=== PATIENT | male | born 1945 ===

== ENCOUNTER 2016-05-14 07:54 | Day surgery (SDC) | payer MEDICARE ==
[2014-12-14 07:34] VITALS: BMI 24.1
[2016-05-14] MEDS ORDERED: Lactated Ringer's 500 ML IV ONE ×2 (12:20)
[2016-05-14] MEDS ORDERED: Propofol 10 mg/ml Inj (20 ML) ONE (12:20)
[2016-05-14] MEDS ORDERED: Lidocaine Hydrochloride 5 ML INJ ONE (12:29)
[2016-05-14] MEDS ORDERED: Lactated Ringer's 1,000 ML IV SCH (12:30)
[2016-05-14 12:57] VITALS: O2SAT 100
[2016-05-14 13:49] VITALS: BP 101/69; PULSE 65; RESP 22; TEMP 97.1
== END 2016-05-14 13:45 | disposition home or self-care (01) ==
LOC: C.ENDO 07:54
PROVIDERS: ATTEND Internal Medicine Gastroenterology
DX: Z12.11 Encounter for screening for malignant neoplasm of colon (principal); Z86.010 Personal history of colon polyps; K64.8 Other hemorrhoids; Z85.46 Personal history of malignant neoplasm of prostate
CPT/HCPCS: 45378; J2704; J7120

== ENCOUNTER 2017-04-14 03:59 | Inpatient (IN) | payer MEDICAID, MEDICARE ==
[2017-04-14 03:59] VITALS: BMI 24.1
[2017-04-14] MEDS ORDERED: Sodium Chloride 0.9% 500 ML IV ONE ×2 (04:23→04:32)
[2017-04-14] MEDS ORDERED: Aluminum Hydroxide/Magnesium Hydroxide Susp (30 mL) PO STA (04:25)
--- NOTE | 2017-04-14 04:25 | C.PDOC ---
Time Seen by Provider: 04/14/17 04:23 Chief Complaint (Nursing): Chest Pain Past Medical History Vital Signs: Last Vital Signs Temp 97.7 F 04/14/17 04:06 Pulse 70 04/14/17 04:06 Resp 20 04/14/17 04:06 BP 90/48 L 04/14/17 04:06 Pulse Ox 100 04/14/17 04:06 - Medical History PMH: Arthritis, Back Problems (), HTN, Hypercholesterolemia, Kidney Stones, Pneumonia (2004), Chronic Kidney Disease Denies: HIV Surgical History: Endoscopy - [facility] Procedures DRAINAGE OF BACK SUBCU/FASCIA WITH DRAIN DEV, OPEN APPROACH (02/01/17) EXCISION OF BACK SUBCU/FASCIA, OPEN APPROACH (02/01/17) FLUOROSCOPY OF SUPERIOR VENA CAVA, GUIDANCE (02/01/17) INSERTION OF INFUSION DEV INTO SUP VENA CAVA, PERC APPROACH (02/01/17) INTRODUCE OTH ANTI-INFECT IN CENTRAL VEIN, PERC (02/01/17) ULTRASONOGRAPHY OF SUPERIOR VENA CAVA, GUIDANCE (02/01/17) Family History: States: Unknown Family Hx - Social History Hx Tobacco Use: No Hx Alcohol Use: No Hx Substance Use: No - Immunization History Hx Tetanus Toxoid Vaccination: No Hx Influenza Vaccination: Yes Hx Pneumococcal Vaccination: Yes ED Course And Treatment O2 Sat by Pulse Oximetry: 100 Disposition - Disposition
--- NOTE | 2017-04-14 04:27 | C.PDOC ---
History Of Present Illness <Cheryl Ngo - Last Filed: 04/14/17 07:02> <Oracio Amin M - Last Filed: 04/14/17 12:41> 72 year old male presents to the ED via EMS for evaluation of burning chest pain which began at approx. 20:00 after eating fried chickpea dish. Patient reports that pain is exacerbated by laying supine. He has been diaphoretic and unable to sleep. He denies vomiting or belching. Pt was given nitro and aspirin en route. (Cheryl Ngo) History Per: Patient History/Exam Limitations: no limitations Onset/Duration Of Symptoms: Hrs Current Symptoms Are (Timing): Still Present Context: Food Quality: Burning Associated Symptoms: Diaphoresis Exacerbating Factors: Other (supine) <Cheryl Ngo - Last Filed: 04/14/17 07:02> <Oracio Amin M - Last Filed: 04/14/17 12:41> Time Seen by Provider: 04/14/17 04:23 Chief Complaint (Nursing): Chest Pain Past Medical History Reviewed: Historical Data, Nursing Documentation - Medical History PMH: Arthritis, Back Problems (), HTN, Hypercholesterolemia, Kidney Stones, Pneumonia (2004), Chronic Kidney Disease Denies: HIV Surgical History: Endoscopy Family History: States: Unknown Family Hx - Social History Hx Tobacco Use: No Hx Alcohol Use: No Hx Substance Use: No - Immunization History Hx Tetanus Toxoid Vaccination: No Hx Influenza Vaccination: Yes Hx Pneumococcal Vaccination: Yes <Cheryl Ngo - Last Filed: 04/14/17 07:02> Vital Signs: Last Vital Signs Temp 97.5 F L 04/14/17 08:53 Pulse 76 04/14/17 08:53 Resp 20 04/14/17 08:53 BP 120/68 04/14/17 08:53 Pulse Ox 100 04/14/17 08:53 - [facility] Procedures DRAINAGE OF BACK SUBCU/FASCIA WITH DRAIN DEV, OPEN APPROACH (02/01/17) EXCISION OF BACK SUBCU/FASCIA, OPEN APPROACH (02/01/17) FLUOROSCOPY OF SUPERIOR VENA CAVA, GUIDANCE (02/01/17) INSERTION OF INFUSION DEV INTO SUP VENA CAVA, PERC APPROACH (02/01/17) INTRODUCE OTH ANTI-INFECT IN CENTRAL VEIN, PERC (02/01/17) ULTRASONOGRAPHY OF SUPERIOR VENA CAVA, GUIDANCE (02/01/17) Review Of Systems Except As Marked, All Systems Reviewed And Found Negative. Constitutional: Negative for: Fever, Chills ENT: Negative for: Ear Pain, Throat Pain Cardiovascular: Positive for: Chest Pain, Other (diaphoresis) Respiratory: Negative for: Shortness of Breath Gastrointestinal: Negative for: Nausea, Vomiting, Abdominal Pain, Diarrhea Skin: Negative for: Rash Neurological: Negative for: Headache <Cheryl Ngo - Last Filed: 04/14/17 07:02> Physical Exam - Physical Exam Appears: Well, No Acute Distress Skin: Normal Color, Warm, Dry Head: Atraumatic, Normacephalic Eye(s): bilateral: Normal Inspection, PERRL, EOMI Oral Mucosa: Moist Tongue: Normal Appearing Lips: Normal Appearing Throat: Normal Neck: Normal, Normal ROM, Supple Cardiovascular: Rhythm Regular Respiratory: Normal Breath Sounds Gastrointestinal/Abdominal: Soft, No Tenderness Back: Normal Inspection Extremity: Normal ROM, No Deformity Neurological/Psych: Oriented x3, Normal Speech <Cheryl Ngo - Last Filed: 04/14/17 07:02> ED Course And Treatment - Laboratory Results Result Diagrams: 04/14/17 04:51 04/14/17 04:51 ECG: Interpreted By Me, Viewed By Me ECG Rhythm: Sinus Rhythm, 1st Degree HB ECG Interpretation: Normal Interpretation Of ECG: Field EKG shows sinus rhythm at 75 bpm, no acute ST-T wave changes, no ectopy. No change in EKG done upon arrival to ER. First degree AV block noted. O2 Sat by Pulse Oximetry: 100 (on RA) <Cheryl Ngo - Last Filed: 04/14/17 07:02> - Laboratory Results Result Diagrams: 04/14/17 04:51 04/14/17 04:51 <Oracio Amin - Last Filed: 04/14/17 12:41> Medical Decision Making <Cheryl Ngo - Last Filed: 04/14/17 07:02> <Oracio Amin Last Filed: 04/14/17 12:41> Medical Decision Making: Impression: indegestion Will order labs, CXR, and IV fluids and reevaluate. Patient reevaluated. Pain no better after GI cocktail. Will give narcotic analgesic and order CT scan. (Cheryl Ngo) Disposition <Cheryl Ngo - Last Filed: 04/14/17 07:02> Discussed With Dr.: Thomas Cervantes Doctor Will See Patient In The: Hospital Counseled Patient/Family Regarding: Studies Performed, Diagnosis - Disposition Disposition Time: 12:41 <Oracio Amin - Last Filed: 04/14/17 12:41> - Disposition Referrals: Olman Graham MD [Staff Provider] - Disposition: HOSPITALIZED Condition: FAIR Forms: [facility] ([place]) - Clinical Impression Clinical Impression: Chest pain, Biliary colic - Scribe Statement The provider has reviewed the documentation as recorded by the Scribe <Cheryl Ngo - Last Filed: 04/14/17 07:02> <Oracio mAin - Last Filed: 04/14/17 12:41> - Scribe Statement The provider has reviewed the documentation as recorded by the Scribe (Berto Escobar) (Cheryl Ngo) Provider Attestation: All medical record entries made by the Scribe were at my direction and personally dictated by me. I have reviewed the chart and agree that the record accurately reflects my personal performance of the history, physical exam, medical decision making, and the department course for this patient. I have also personally directed, reviewed, and agree with the discharge instructions and disposition. (Cheryl Ngo) Addendum <Cheryl Ngo - Last Filed: 04/14/17 07:02> <Oracio Amin - Last Filed: 04/14/17 12:41> Addendum: 04/14/17 12:39 Received patient in s/o pending ultrasound and ct scan which demonstrated biliary disease. Chest pain has improved. Case discussed with Dr. Gabe Cervantes and will admit to telemetry. Surgical consult for Dr. Graham, vice president of instruction notified. (Oracio Amin)
[2017-04-14] MEDS ORDERED: Aluminum Hydroxide/Magnesium Hydroxide Susp (30 mL) ONE (04:32)
[2017-04-14 05:08] LABS: BASO % 0.4 % (0.0-2.0); EOS # 0.1 K/uL (0.0-0.7); EOS % 0.8 % (0.0-4.0); HEMOGLOBIN 11.5 g/dL (12.0-18.0); LYMPH # 2.7 K/uL (1.0-4.3); LYMPH % 30.8 % (20.0-40.0); MEAN CELL VOLUME 86.5 fL (80.0-94.0); MEAN CORPUSCULAR HEMOGLOBIN 28.2 pg (27.0-31.0); MEAN CORPUSCULAR HGB CONC 32.6 g/dL (33.0-37.0); MEAN PLATELET VOLUME 7.9 fL (7.2-11.7); MONO # 0.6 K/uL (0.0-0.8); MONO % 7.1 % (0.0-10.0); NEUT # 5.4 K/uL (1.8-7.0); NEUT % 60.9 % (50.0-75.0); RBC 4.1 Mil/uL (4.40-5.90); RED CELL DISTRIBUTION WIDTH 14.9 % (11.5-14.5); WHITE BLOOD COUNT 8.9 K/uL (4.8-10.8)
[2017-04-14 05:15] LABS: ALBUMIN 3.8 g/dL (3.5-5.0); ALT/SGPT 48 U/L (21-72); AST/SGOT 23 U/L (17-59); BLOOD UREA NITROGEN 17 mg/dL (9-20); CALCIUM 9.2 mg/dl (8.6-10.4); GFR AFRICAN-AMERICAN > 60; GFR NON-AFRICAN AMERICAN > 60
[2017-04-14] MEDS ORDERED: Morphine 4 MG/ML VIAL IV ONE ×2 (06:30→08:49)
[2017-04-14] MEDS ORDERED: Morphine 4 MG/ML VIAL ONE ×3 (06:52→14:08)
[2017-04-14] MEDS ORDERED: Iodixanol 320 MG/ML 100 ML BOTTLE IV ONE (07:44)
--- NOTE | 2017-04-14 08:02 | RAD ---
PROCEDURE: CHEST RADIOGRAPH, 1 VIEW HISTORY: chest pain COMPARISON: 09/25/2015 FINDINGS: LUNGS: No consolidation PLEURA: No pneumothorax. Interval vague opacity over the left costophrenic angle noted. Complete obliteration of the ankle. Nevertheless an interval change in appearance is noted oval left pleural parenchymal thickening and/or trace effusion here possible. CARDIOVASCULAR: Top-normal heart size. No dwight pulmonary venous congestion OSSEOUS STRUCTURES: Thoraco lumbar spondylosis the bilateral shoulder arthrosis VISUALIZED UPPER ABDOMEN: Normal. OTHER FINDINGS: None. IMPRESSION: No consolidation. Interval left inferolateral pleural parenchymal opacity/ reaction -costophrenic angle. Trace interval fluid possible
--- NOTE | 2017-04-14 09:55 | CT ---
PROCEDURE: CT Abdomen and Pelvis with contrast HISTORY: Abdominal pain COMPARISON: None. TECHNIQUE: CT scan of the abdomen and pelvis was performed after intravenous administration of contrast. Oral contrast was not administered. Coronal and sagittal reformatted images were obtained. Contrast dose: 100 mL Visipaque Radiation dose: Total exam DLP = 316.79 mGy-cm. This CT exam was performed using one or more of the following dose reduction techniques: Automated exposure control, adjustment of the mA and/or kV according to patient size, and/or use of iterative reconstruction technique. FINDINGS: LOWER THORAX: There is dependent atelectasis in the lung bases. LIVER: The liver is normal in size and there is homogeneous enhancement. No gross lesion or ductal dilatation. GALLBLADDER AND BILE DUCTS: The gallbladder is distended and there are multiple gallstones. No wall thickening or pericholecystic fluid. PANCREAS: Normal in size with homogeneous enhancement. No gross lesion or ductal dilatation. SPLEEN: Normal in size and appearance. ADRENALS: No discrete nodule. KIDNEYS AND URETERS: Both kidneys are normal in size and there is homogeneous enhancement. There are simple cortical cysts in both kidneys, the largest left upper pole parapelvic cyst measures 2.6 cm. There is a 3 mm nonobstructing stone in the upper pole and 2 mm nonobstructing stone in the lower pole of the right kidney. VASCULATURE: No aortic aneurysm. BOWEL: The small bowel loops are normal in caliber. There is large amount of stool in the colon. No bowel dilatation or obstruction. APPENDIX: Normal appendix. PERITONEUM: No free fluid. No free air. LYMPH NODES: No enlarged lymph nodes. BLADDER: The urinary bladder is normal in appearance. . REPRODUCTIVE: The prostate gland is normal in size. BONES: No acute fracture. Interspinous fusion at L4 and L5. OTHER FINDINGS: None. IMPRESSION: 1. Constipation. No evidence of bowel obstruction. 2. 3 mm nonobstructing stone in the upper pole and 2 mm nonobstructing stone in the lower pole of the right kidney. 3. Cholelithiasis and distended gallbladder. If clinically indicated, correlation with right upper quadrant ultrasound may be performed to exclude acute cholecystitis.
[2017-04-14 10:35] LABS: LIPASE 141 U/L (23-300)
--- NOTE | 2017-04-14 12:12 | US ---
HISTORY: abd. pain COMPARISON: CT abdomen and pelvis with IV contrast performed 04/14/17 TECHNIQUE: Sonographic evaluation of the right upper quadrant of the abdomen. FINDINGS: LIVER: Measures 12.6 cm in length. Echogenic liver may be seen in setting of hepatic parenchymal disease or fatty infiltration. No focal hepatic mass identified. The main portal vein appears patent with normal directional flow. No intrahepatic bile duct dilatation. GALLBLADDER: Gallstones. Gallbladder wall appears top normal in thickness measuring approximately 3 mm. Mild pericholecystic edema. Negative sonographic Singleton's sign as assessed by the plastic surgery nurse. COMMON BILE DUCT: Measures 4 mm. PANCREAS: Not well-visualized. RIGHT KIDNEY: Measures 9.6 x 4.4 x 4.4 cm. No hydronephrosis. 4 mm upper pole renal calculus. 1.2 cm and 1.7 cm renal cysts. AORTA: Limited visualization appears grossly unremarkable. IVC: Limited visualization appears grossly unremarkable. OTHER FINDINGS: None . IMPRESSION: Immobile gallstones at the level the gallbladder neck. Gallbladder wall appears top normal in thickness. Minimal pericholecystic edema. Negative sonographic Singleton's sign as assessed by the plastic surgery nurse. Correlate clinically for possibility of cholecystitis. Echogenic liver may be seen in setting of hepatic parenchymal disease or fatty infiltration. Nonobstructing right renal calculus. Right renal cysts.
[2017-04-14] MEDS ORDERED: Piperacill/Tazo 3.375gm in Dex 3.375 GM/50 ML BAG IVPB STA (12:37)
--- NOTE | 2017-04-14 12:43 | CP.PCM.HP ---
History of Present Illness - History of Present Illness History of Present Illness: Medicine Note For Hospitalist Service- Dr. Gabe Cervantes CC: Chest pain and abdominal pain HPI: 72 Male with PMHx as listed below presents to the ED with chest pain and abdominal pain x 1 day. Patient reports last night he ate a greasy meal , deep fried dumplings around 8pm. Around 10pm he started to feel chest pressure localized to the epigastric area, did not radiate and lasted several hours. He admitted to abdominal pain and distention. He did not take anything for pain. He was transported to ED via ambulance. Patient reported the chest pressure resolved after receiving medications in the ED. He admits to feeling bloated and distended. He normally has a daily bowel movement, he did not have a bowel movement today. Currently patient reports he no longer has chest pain, admits to abdominal discomfort and distention. He does not have any appetite currently. Denied fever, chills, headache, chest pain, SOB, n/v/d/c, or urinary symptoms. PMHx: Diastolic CHF (LVEF 55%), Prostate Cancer s/p chemoradiation (diagnosed 2015, remission 01/2017), HTN, TB (2004), QTc Prolongation, Nephrolithiasis, 1st Degree AV Block, HLD, Chronic Anemia PSHx: Laminectomy with Fusion (01/21/17) - spinal abscess s/p I&D, Cataract Bilaterally (2015), Left inguinal and Umbilical Hernia, Colonoscopy 2016 Meds: Lisinopril 5mg PO daily, Lasix 20mg PO BID All: NKDA SHx: Denied any tobacco, alcohol, or illicit drug use FHx: Unremarkable Ophthalmology: Dr. Bhavik Wetzel No advance directive POA: Darlin Cervantes [phone] Present on Admission - Present on Admission Any Indicators Present on Admission: No Past Patient History - Infectious Disease Hx of Infectious Diseases: None - Past Medical History & Family History Past Medical History?: Yes - Past Social History Smoking Status: Never Smoked - CARDIAC Hx Hypercholesterolemia: Yes Hx Hypertension: Yes - PULMONARY Hx Pneumonia: Yes (2004) - NEUROLOGICAL Hx Neurological Disorder: No - HEENT Hx HEENT Problems: Yes Hx Cataracts: Yes (Extraction) Other/Comment: Eye glasses - RENAL Hx Chronic Kidney Disease: Yes Hx Kidney Stones: Yes - ENDOCRINE/METABOLIC Hx Endocrine Disorders: No - HEMATOLOGICAL/ONCOLOGICAL Hx Human Immunodeficiency Virus (HIV): No - INTEGUMENTARY Hx Dermatological Problems: No - MUSCULOSKELETAL/RHEUMATOLOGICAL Hx Arthritis: Yes - GASTROINTESTINAL Hx Gastrointestinal Disorders: Yes Hx Hemorrhoids: Yes - GENITOURINARY/GYNECOLOGICAL Hx Genitourinary Disorders: Yes Hx Prostate Cancer: Yes - PSYCHIATRIC Hx Substance Use: No - SURGICAL HISTORY Hx Surgeries: Yes Hx Cataract Extraction: Yes Hx Herniorrhaphy: Yes Other/Comment: 01/21/2017 - ANESTHESIA Hx Anesthesia: Yes Hx Anesthesia Reactions: No Hx Malignant Hyperthermia: No Meds Allergies/Adverse Reactions: Allergies Allergy/AdvReac Type Severity Reaction Status Date / Time No Known Allergies Allergy Verified 04/14/17 04:11 Physical Exam - Constitutional Appears: No Acute Distress - Head Exam Head Exam: NORMAL INSPECTION, NORMOCEPHALIC - Eye Exam Eye Exam: EOMI, Normal appearance, PERRL Pupil Exam: NORMAL ACCOMODATION - ENT Exam ENT Exam: Mucous Membranes Moist - Respiratory Exam Respiratory Exam: Clear to Auscultation Bilateral, NORMAL BREATHING PATTERN. absent: Decreased Breath Sounds, Wheezes - Cardiovascular Exam Cardiovascular Exam: REGULAR RHYTHM, RRR. absent: JVD - GI/Abdominal Exam GI & Abdominal Exam: Normal Bowel Sounds, Soft. absent: Distended, Guarding, Rigid, Tenderness (Patient received morphine in ED prior to exam. ) - Extremities Exam Extremities exam: Positive for: normal inspection, pedal pulses present. Negative for: pedal edema, tenderness - Neurological Exam Neurological exam: Alert, CN II-XII Intact, Oriented x3 - Psychiatric Exam Psychiatric exam: Normal Affect, Normal Mood - Skin Skin Exam: Dry, Intact, Normal Color, Warm Results - Vital Signs Recent Vital Signs: Last Vital Signs Temp 97.5 F L 04/14/17 08:53 Pulse 76 04/14/17 08:53 Resp 20 04/14/17 08:53 BP 120/68 04/14/17 08:53 Pulse Ox 100 04/14/17 08:53 - Labs Result Diagrams: 04/14/17 04:51 04/14/17 04:51 Labs: Laboratory Results - last 24 hr 04/14/17 04/14/17 04:51 04:51 WBC 8.9 RBC 4.10 L Hgb 11.5 L Hct 35.4 MCV 86.5 D MCH 28.2 MCHC 32.6 L RDW 14.9 H Plt Count 302 MPV 7.9 Neut % (Auto) 60.9 Lymph % (Auto) 30.8 [place] % (Auto) 7.1 Eos % (Auto) 0.8 Baso % (Auto) 0.4 Neut # (Auto) 5.4 Lymph # (Auto) 2.7 [place] # (Auto) 0.6 Eos # (Auto) 0.1 Baso # (Auto) 0.0 Sodium 139 Potassium 4.3 Chloride 101 Carbon Dioxide 26 Anion Gap 16 BUN 17 Creatinine 0.9 Est GFR ( Amer) > 60 Est GFR (Non-Af Amer) > 60 Random Glucose 147 H Calcium 9.2 Total Bilirubin 0.6 AST 23 ALT 48 Alkaline Phosphatase 70 Troponin I < 0.0120 Total Protein 7.5 Albumin 3.8 Globulin 3.7 Albumin/Globulin Ratio 1.0 Lipase 141 Assessment & Plan - Assessment and Plan (Free Text) Plan: Acute Cholecystitis General Surgery consulted- Dr. Graham- ave appreciated Afebrile, no leukocytosis Negative Singleton sign on exam - however patient received total 8mg IV of morphine prior to examination Blood Culture f/u Imaging: CT Ab&P with IV only: 1. Constipation. No evidence of bowel obstruction. 2. 3 mm nonobstructing stone in the upper pole and 2 mm nonobstructing stone in the lower pole of the right kidney. 3. Cholelithiasis and distended gallbladder. If clinically indicated, correlation with right upper quadrant ultrasound may be performed to exclude acute cholecystitis. Gallbladder US: Immobile gallstones at the level the gallbladder neck. Gallbladder wall appears top normal in thickness. Minimal pericholecystic edema. Negative sonographic Singleton's sign as assessed by the structural shop helper. Correlate clinically for possibility of cholecystitis. Echogenic liver may be seen in setting of hepatic parenchymal disease or fatty infiltration. Nonobstructing right renal calculus. Right renal cysts. Meds: Zosyn 3.375gm IVP Q6H Probiotic 1 tab PO BID - 2 hours prior to abx administration Zofran PRN Chest pain R/O ACS ANGELINA- negative, EKst degree AV Block F/U ANGELINA x 2, EKG x 2 Diastolic CHF Cardiology consulted - Dr. Barrientos - ave appreciated - for cardiac clearance ECHO 01/2017: LVEF 55% with diastolic dysfunction CXR: No consolidation. Interval left inferolateral pleural parenchymal opacity/ reaction -costophrenic angle. Trace interval fluid possible BNP: Resumed home medication: Lasix 20mg PO BID Patient is for nuclear stress test tomorrow morning 04/15/17 QTc Prolongation EKG: QTc 452 Continue to monitor 1st Degree AV Block EKG: ME interval 214 Continue to monitor Nephrolithiasis Asymptomatic CT Ab&Pwith IV only: 1. Constipation. No evidence of bowel obstruction. 2. 3 mm nonobstructing stone in the upper pole and 2 mm nonobstructing stone in the lower pole of the right kidney. 3. Cholelithiasis and distended gallbladder. If clinically indicated, correlation with right upper quadrant ultrasound may be performed to exclude acute cholecystitis. HTN Hx HLD Resumed home medication: Lisinopril 5mg PO daily A1C: 5.6 Prostate Cancer s/p chemoradiation Diagnosed 2015, remission 01/2017 Patient follows up with Dr. Bailon Hx TB (2004) Hx Cataract Surgery Patient to continue follow up with Opthamology Prophylactic Measures GI PPX: Protonix 40mg IVP daily DVT PPX: SCDs, Heparin [id number] will hold prior to surgery NPO DW Dr. Gabe Cervantes, Wanda Feldman DO, PGY-1
[2017-04-14] MEDS ORDERED: Morphine 4 MG/ML VIAL IVP PRN (12:57)
[2017-04-14] MEDS ORDERED: Morphine 4 MG/ML VIAL IV STA (12:59)
[2017-04-14] MEDS ORDERED: Sodium Chloride 0.9% 1,000 ML IV SCH (13:00)
[2017-04-14] MEDS ORDERED: Piperacillin/Tazobact 3.375 GM in Sodium Chloride 100 ML IVPB STA (13:00)
[2017-04-14] MEDS ORDERED: Sodium Chloride 0.9% 1,000 ML ONE (14:08)
[2017-04-14] MEDS ORDERED: Bisacodyl 5mg EC Tab PO ONE (14:19)
[2017-04-14 15:04] LABS: PROTHROMBIN TIME 10.8 SECONDS (9.7-12.2)
[2017-04-14 15:08] LABS: CK-MB 0.67 ng/mL (0.0-3.38)
--- NOTE | 2017-04-14 16:51 | CP.PCM.CON ---
History of Present Illness - History of Present Illness History of Present Illness: General Surgery Consult HPI: 72M presented to the ED complaining of chest discomfort and epigastric pain that started at 11 pm on 04/13. Pt had a large amount of fatty, fried food at dinner prior to the pain. He states that his pain migrated to his RUQ over few hours. Pain is 10/10 but has slowly been improving after pain meds. Denies fevers, chills, shortness of breath, diarrhea, constipation, nausea, or vomiting. PMH: diastolic CHF, nephrolithiasis, prostate cancer, TB (2005 treated), HTN, QTc prolongation, 1st degree AV block, HLD, chronic anemia PSH: laminectomy with fusion (L4-S1) 01/21/17, spinal abscess s/p I&D 02/08, left inguinal hernia repair x2, umbilical hernia repair SH: Denies tobacco, EtOH, drug use FH: non-contributory All: NKDA Meds: Lisinopril 5 mg po daily, Lasix 20 mg po bid Review of Systems - Review of Systems All systems: reviewed and no additional remarkable complaints except (as per HPI ) Past Patient History - Infectious Disease Hx of Infectious Diseases: None - Past Medical History & Family History Past Medical History?: Yes - Past Social History Smoking Status: Never Smoked - CARDIAC Hx Hypercholesterolemia: Yes Hx Hypertension: Yes - PULMONARY Hx Pneumonia: Yes (2004) - NEUROLOGICAL Hx Neurological Disorder: No - HEENT Hx HEENT Problems: Yes Hx Cataracts: Yes (Extraction) Other/Comment: Eye glasses - RENAL Hx Chronic Kidney Disease: Yes Hx Kidney Stones: Yes - ENDOCRINE/METABOLIC Hx Endocrine Disorders: No - HEMATOLOGICAL/ONCOLOGICAL Hx Human Immunodeficiency Virus (HIV): No - INTEGUMENTARY Hx Dermatological Problems: No - MUSCULOSKELETAL/RHEUMATOLOGICAL Hx Arthritis: Yes - GASTROINTESTINAL Hx Gastrointestinal Disorders: Yes Hx Hemorrhoids: Yes - GENITOURINARY/GYNECOLOGICAL Hx Genitourinary Disorders: Yes Hx Prostate Cancer: Yes - PSYCHIATRIC Hx Substance Use: No - SURGICAL HISTORY Hx Surgeries: Yes Hx Cataract Extraction: Yes Hx Herniorrhaphy: Yes Other/Comment: 01/21/2017 - ANESTHESIA Hx Anesthesia: Yes Hx Anesthesia Reactions: No Hx Malignant Hyperthermia: No Meds Allergies/Adverse Reactions: Allergies Allergy/AdvReac Type Severity Reaction Status Date / Time No Known Allergies Allergy Verified 04/14/17 04:11 - Medications Medications: Current Medications Furosemide (Lasix) 20 mg PO BID [facility] Heparin Sodium (Porcine) (Heparin) 5,000 units SC Q8 [facility] Piperacillin Sod/Tazobactam Sod (Zosyn 4.5 Gm Iv Premix) 4.5 gm in 100 mls @ 200 mls/hr IVPB Q8H [facility] Lactobacillus Acidophilus (Bacid Acidophilus) 1 cap PO BID [facility] Lisinopril (Zestril) 5 mg PO DAILY [facility] Ondansetron HCl (Zofran Inj) 4 mg IVP Q6 PRN PRN Reason: Nausea/Vomiting Pantoprazole Sodium (Protonix Inj) 40 mg IVP DAILY [facility] Physical Exam - Constitutional Appears: Non-toxic, No Acute Distress - Head Exam Head Exam: ATRAUMATIC, NORMOCEPHALIC - Eye Exam Eye Exam: EOMI. absent: Scleral icterus - ENT Exam ENT Exam: Mucous Membranes Moist Additional comments: trachea midline - Respiratory Exam Respiratory Exam: NORMAL BREATHING PATTERN. absent: Respiratory Distress - Cardiovascular Exam Cardiovascular Exam: +S1, +S2. absent: Bradycardia, Tachycardia - GI/Abdominal Exam GI & Abdominal Exam: Guarding (in RUQ), Soft, Tenderness (in RUQ, milder in epigastrum). absent: Distended, Firm, Hernia, Rigid Additional comments: + flaherty's - Rectal Exam Rectal Exam: Deferred - Extremities Exam Extremities exam: Positive for: normal capillary refill, pedal pulses present. Negative for: calf tenderness - Back Exam Back exam: absent: CVA tenderness (L), CVA tenderness (R) - Neurological Exam Neurological exam: Alert, Oriented x3 - Psychiatric Exam Psychiatric exam: Normal Affect, Normal Mood - Skin Skin Exam: Dry, Warm Results - Vital Signs Recent Vital Signs: Last Vital Signs Temp 97.7 F 04/14/17 14:43 Pulse 76 04/14/17 14:43 Resp 18 04/14/17 14:43 BP 124/77 04/14/17 14:43 Pulse Ox 98 04/14/17 14:43 - Labs Result Diagrams: 04/14/17 04:51 04/14/17 04:51 Labs: Laboratory Results - last 24 hr 04/14/17 04/14/17 04/14/17 04:51 04:51 14:15 WBC 8.9 RBC 4.10 L Hgb 11.5 L Hct 35.4 MCV 86.5 D MCH 28.2 MCHC 32.6 L RDW 14.9 H Plt Count 302 MPV 7.9 Neut % (Auto) 60.9 Lymph % (Auto) 30.8 [place] % (Auto) 7.1 Eos % (Auto) 0.8 Baso % (Auto) 0.4 Neut # (Auto) 5.4 Lymph # (Auto) 2.7 [place] # (Auto) 0.6 Eos # (Auto) 0.1 Baso # (Auto) 0.0 PT INR APTT Sodium 139 Potassium 4.3 Chloride 101 Carbon Dioxide 26 Anion Gap 16 BUN 17 Creatinine 0.9 Est GFR ( Amer) > 60 Est GFR (Non-Af Amer) > 60 Random Glucose 147 H Hemoglobin A1c 5.6 Calcium 9.2 Total Bilirubin 0.6 AST 23 ALT 48 Alkaline Phosphatase 70 Total Creatine Kinase CK-MB (Mass) Troponin I < 0.0120 Total Protein 7.5 Albumin 3.8 Globulin 3.7 Albumin/Globulin Ratio 1.0 Lipase 141 04/14/17 04/14/17 14:15 14:56 WBC RBC Hgb Hct MCV MCH MCHC RDW Plt Count MPV Neut % (Auto) Lymph % (Auto) [place] % (Auto) Eos % (Auto) Baso % (Auto) Neut # (Auto) Lymph # (Auto) [place] # (Auto) Eos # (Auto) Baso # (Auto) PT 10.8 INR 1.0 APTT 30 Sodium Potassium Chloride Carbon Dioxide Anion Gap BUN Creatinine Est GFR ( Amer) Est GFR (Non-Af Amer) Random Glucose Hemoglobin A1c Calcium Total Bilirubin AST ALT Alkaline Phosphatase Total Creatine Kinase 51 L CK-MB (Mass) 0.67 Troponin I < 0.0120 Total Protein Albumin Globulin Albumin/Globulin Ratio Lipase - Imaging and Cardiology CT scan - abdomen Status: Image reviewed by me, Report reviewed by me US - abdomen Status: Image reviewed by me, Report reviewed by me Assessment & Plan - Assessment and Plan (Free Text) Assessment: 72M with biliary colic vs early cholecystitis Plan: - Cont Abx per medicine - Zofran PRN - Laproscopic cholecystectomy planning for , awaiting cardiac clearance. - F/U stress test tomorrow - AM labs - Analgesia PRN D/W Dr. Gladys Judge PGY4
[2017-04-14] MEDS: Piperacill/Tazo 4.5gm in Dex 4.5 GM/100 ML BAG IVPB SCH (17:45)
[2017-04-14] MEDS ORDERED: Piperacillin/Tazobact 3.375 GM in Sodium Chloride 100 ML IVPB SCH (20:00)
[2017-04-14 22:18] LABS: CK-MB 0.64 ng/mL (0.0-3.38)
[2017-04-15] MEDS: Piperacill/Tazo 4.5gm in Dex 4.5 GM/100 ML BAG IVPB SCH ×3 (01:50→18:14)
[2017-04-15 06:38] LABS: BASO % 0.4 % (0.0-2.0); EOS # 0.1 K/uL (0.0-0.7); EOS % 1.7 % (0.0-4.0); HEMOGLOBIN 11.1 g/dL (12.0-18.0); LYMPH # 1.2 K/uL (1.0-4.3); LYMPH % 18.9 % (20.0-40.0); MEAN CELL VOLUME 85.5 fL (80.0-94.0); MEAN PLATELET VOLUME 7.9 fL (7.2-11.7); MONO # 0.7 K/uL (0.0-0.8); MONO % 10.3 % (0.0-10.0); NEUT # 4.3 K/uL (1.8-7.0); NEUT % 68.7 % (50.0-75.0); RBC 3.83 Mil/uL (4.40-5.90); RED CELL DISTRIBUTION WIDTH 14.7 % (11.5-14.5); WHITE BLOOD COUNT 6.3 K/uL (4.8-10.8)
[2017-04-15 06:54] LABS: ALBUMIN 3.1 g/dL (3.5-5.0); ALT/SGPT 39 U/L (21-72); AST/SGOT 19 U/L (17-59); BLOOD UREA NITROGEN 18 mg/dL (9-20); CALCIUM 8.3 mg/dl (8.6-10.4); GFR AFRICAN-AMERICAN > 60; GFR NON-AFRICAN AMERICAN 59; HDL CHOLESTEROL 47 mg/dL (30-70); MAGNESIUM 2.2 mg/dL (1.6-2.3)
[2017-04-15 07:02] LABS: LDL CHOLESTEROL 83 mg/dL (0-129)
--- NOTE | 2017-04-15 07:40 | CP.PCM.PN ---
<Wanda Feldman - Last Filed: 04/15/17 09:52> Subjective - Date & Time of Evaluation Date of Evaluation: 04/15/17 Time of Evaluation: 07:00 - Subjective Subjective: Medicine Note for Hospitalist Service- Dr. Gabe Cervantes Patient was seen and examined at bedside. Patient is NPO for Nuclear Stress test today. Denied fever, chills, headache, chest pain, abdominal pain, n/v/d/c , or urinary symptoms. Objective - Vital Signs/Intake and Output Vital Signs (last 24 hours): Temp Pulse Resp BP Pulse Ox 98.2 F 80 20 99/62 L 96 04/15/17 04:00 04/15/17 04:00 04/15/17 04:00 04/15/17 04:00 04/15/17 04:00 Intake and Output: 04/15/17 04/15/17 06:59 18:59 Intake Total 10 Balance 10 - Medications Medications: Current Medications Furosemide (Lasix) 20 mg PO BID [facility] Last Admin: 04/14/17 17:44 Dose: 20 mg Heparin Sodium (Porcine) (Heparin) 5,000 units SC Q8 [facility] Last Admin: 04/15/17 06:06 Dose: 5,000 units Piperacillin Sod/Tazobactam Sod (Zosyn 4.5 Gm Iv Premix) 4.5 gm in 100 mls @ 200 mls/hr IVPB Q8H [facility] Last Admin: 04/15/17 01:50 Dose: 200 mls/hr Ketorolac Tromethamine (Toradol) 15 mg IVP Q6 PRN PRN Reason: Pain, moderate (4-7) Ketorolac Tromethamine (Toradol) 30 mg IVP Q6 PRN PRN Reason: Pain, severe (8-10) Last Admin: 04/14/17 19:56 Dose: 30 mg Lactobacillus Acidophilus (Bacid Acidophilus) 1 cap PO BID [facility] Lisinopril (Zestril) 5 mg PO DAILY [facility] Ondansetron HCl (Zofran Inj) 4 mg IVP Q6 PRN PRN Reason: Nausea/Vomiting Pantoprazole Sodium (Protonix Inj) 40 mg IVP DAILY [facility] Pneumococcal Polyvalent Vaccine (Pneumovax 23 Vaccine) 0.5 ml IM .ONCE ONE Stop: 04/17/17 10:01 - Labs Labs: 04/15/17 06:31 04/15/17 06:31 PT 10.8 SECONDS (9.7-12.2) 04/14/17 14:56 INR 1.0 04/14/17 14:56 APTT 30 SECONDS (21-34) 04/14/17 14:56 - Additional Findings Additional findings: - Constitutional Appears: No Acute Distress - Head Exam Head Exam: NORMAL INSPECTION, NORMOCEPHALIC - Eye Exam Eye Exam: EOMI, Normal appearance, PERRL Pupil Exam: NORMAL ACCOMODATION - ENT Exam ENT Exam: Mucous Membranes Moist - Respiratory Exam Respiratory Exam: Clear to Auscultation Bilateral, NORMAL BREATHING PATTERN. absent: Decreased Breath Sounds, Wheezes - Cardiovascular Exam Cardiovascular Exam: REGULAR RHYTHM, RRR. absent: JVD - GI/Abdominal Exam GI & Abdominal Exam: Normal Bowel Sounds, Soft. absent: Distended, Guarding, Rigid, Tenderness (Patient received morphine in ED prior to exam. ) - Extremities Exam Extremities exam: Positive for: normal inspection, pedal pulses present. Negative for: pedal edema, tenderness - Neurological Exam Neurological exam: Alert, CN II-XII Intact, Oriented x3 - Psychiatric Exam Psychiatric exam: Normal Affect, Normal Mood - Skin Skin Exam: Dry, Intact, Normal Color, Warm Assessment and Plan - Assessment and Plan (Free Text) Plan: Acute Cholecystitis General Surgery consulted- Dr. Graham- help appreciated Afebrile, no leukocytosis Negative Singleton sign on exam - however patient received total 8mg IV of morphine prior to examination Blood Culture f/u OR Scheduled - 04/16/[address] Graham after 11am Imaging: CT Ab&P with IV only: 1. Constipation. No evidence of bowel obstruction. 2. 3 mm nonobstructing stone in the upper pole and 2 mm nonobstructing stone in the lower pole of the right kidney. 3. Cholelithiasis and distended gallbladder. If clinically indicated, correlation with right upper quadrant ultrasound may be performed to exclude acute cholecystitis. Gallbladder US: Immobile gallstones at the level the gallbladder neck. Gallbladder wall appears top normal in thickness. Minimal pericholecystic edema. Negative sonographic Singleton's sign as assessed by the casing wringer operator. Correlate clinically for possibility of cholecystitis. Echogenic liver may be seen in setting of hepatic parenchymal disease or fatty infiltration. Nonobstructing right renal calculus. Right renal cysts. Meds: Zosyn 3.375gm IVP Q6H Probiotic 1 tab PO BID - 2 hours prior to abx administration Zofran PRN Chest pain R/O ACS ANGELINA- negative, EKst degree AV Block ANGELINA x 3- negative, EKG x 3- 1st degree AV block Diastolic CHF Cardiology consulted - Dr. Barrientos - help appreciated - for cardiac clearance ECHO 01/2017: LVEF 55% with diastolic dysfunction CXR: No consolidation. Interval left inferolateral pleural parenchymal opacity/ reaction -costophrenic angle. Trace interval fluid possible BNP: Resumed home medication: Lasix 20mg PO BID Patient is for nuclear stress test today 04/15/17 QTc Prolongation EKG: QTc 452 Continue to monitor 1st Degree AV Block EKG: MA interval 214 Continue to monitor Nephrolithiasis Asymptomatic CT Ab&Pwith IV only: 1. Constipation. No evidence of bowel obstruction. 2. 3 mm nonobstructing stone in the upper pole and 2 mm nonobstructing stone in the lower pole of the right kidney. 3. Cholelithiasis and distended gallbladder. If clinically indicated, correlation with right upper quadrant ultrasound may be performed to exclude acute cholecystitis. HTN Hx HLD Resumed home medication: Lisinopril 5mg PO daily A1C: 5.6 Prostate Cancer s/p chemoradiation Diagnosed 2015, remission 01/2017 Patient follows up with Dr. Bailon Hx TB (2004) Hx Cataract Surgery Patient to continue follow up with Ophthalmology Prophylactic Measures GI PPX: Protonix 40mg IVP daily DVT PPX: SCDs, Heparin [id number] will hold prior to surgery NPO DW Wanda Azul DO, PGY-1 <Thomas Cervantes - Last Filed: 04/15/17 18:41> Objective - Vital Signs/Intake and Output Vital Signs (last 24 hours): Temp Pulse Resp BP Pulse Ox 98.3 F 71 20 101/59 L 100 04/15/17 15:20 04/15/17 15:20 04/15/17 15:20 04/15/17 15:20 04/15/17 15:20 Intake and Output: 04/15/17 04/15/17 06:59 18:59 Intake Total 10 Balance 10 - Medications Medications: Current Medications Furosemide (Lasix) 20 mg PO BID [facility] Last Admin: 04/15/17 10:53 Dose: 20 mg Heparin Sodium (Porcine) (Heparin) 5,000 units SC Q8 [facility] Last Admin: 04/15/17 14:30 Dose: 5,000 units Piperacillin Sod/Tazobactam Sod (Zosyn 4.5 Gm Iv Premix) 4.5 gm in 100 mls @ 200 mls/hr IVPB Q8H [facility] Last Admin: 04/15/17 18:14 Dose: 200 mls/hr Ketorolac Tromethamine (Toradol) 15 mg IVP Q6 PRN PRN Reason: Pain, moderate (4-7) Ketorolac Tromethamine (Toradol) 30 mg IVP Q6 PRN PRN Reason: Pain, severe (8-10) Last Admin: 04/14/17 19:56 Dose: 30 mg Lactobacillus Acidophilus (Bacid Acidophilus) 1 cap PO BID [facility] Last Admin: 04/15/17 18:14 Dose: 1 cap Lisinopril (Zestril) 5 mg PO DAILY [facility] Last Admin: 04/15/17 10:53 Dose: 5 mg Ondansetron HCl (Zofran Inj) 4 mg IVP Q6 PRN PRN Reason: Nausea/Vomiting Pantoprazole Sodium (Protonix Inj) 40 mg IVP DAILY [facility] Last Admin: 04/15/17 10:54 Dose: 40 mg Pneumococcal Polyvalent Vaccine (Pneumovax 23 Vaccine) 0.5 ml IM .ONCE ONE Stop: 04/17/17 10:01 - Labs Labs: 04/15/17 06:31 04/15/17 06:31 PT 10.8 SECONDS (9.7-12.2) 04/14/17 14:56 INR 1.0 04/14/17 14:56 APTT 30 SECONDS (21-34) 04/14/17 14:56 Attending/Attestation - Attestation I have personally seen and examined this patient.: Yes I have fully participated in the care of the patient.: Yes I have reviewed all pertinent clinical information, including history, physical exam and plan: Yes Notes (Text): 04/15/17 18:33 Patient was seen and examined right after he returned from Stress Test. Exam, assessment and plan were gone over with the Resident. Later in the day, I spoke with the resident working with Corporate Concierge Dr. Barrientos and patient is cleared for surgery 04/16/17. I spoke with [employer] working with Dr. Graham and notified him that patient was cleared. Thomas Cervantes D.O.
[2017-04-15] MEDS ORDERED: Aminophylline 25 mg/ml Inj ONE (09:02)
--- NOTE | 2017-04-15 09:49 | CP.PCM.CON ---
<BrennanBrianda - Last Filed: 04/15/17 18:43> History of Present Illness - History of Present Illness History of Present Illness: Cardiology consult note for Dr. Barrientos. 72 Male with past medical history of Diastolic CHF (LVEF 55%), Prostate Cancer s/p chemoradiation (diagnosed 2015, remission 01/2017), HTN, TB (2004), QTc Prolongation, Nephrolithiasis, 1st Degree AV Block, HLD, Chronic Anemia. Patient presented with acute cholecystitis requiring surgery. Cardiology was consulted for surgical clearance. Due to patients history and risk factors he will require stress test prior to clearance. He will have this done today 04/15. He denies chest pain, palpitations, SOB. Review of Systems - Constitutional Constitutional: absent: Chills, Fever - Cardiovascular Cardiovascular: absent: Chest Pain, Chest Pain at Rest, Palpitations - Respiratory Respiratory: absent: Cough, Dyspnea, Dyspnea on Exertion - Gastrointestinal Gastrointestinal: Abdominal Pain. absent: Nausea, Vomiting Past Patient History - Infectious Disease Hx of Infectious Diseases: None - Past Medical History & Family History Past Medical History?: Yes - Past Social History Smoking Status: Never Smoked - CARDIAC Hx Hypercholesterolemia: Yes Hx Hypertension: Yes - PULMONARY Hx Pneumonia: Yes (2004) - NEUROLOGICAL Hx Neurological Disorder: No - HEENT Hx HEENT Problems: Yes Hx Cataracts: Yes (Extraction) Other/Comment: Eye glasses - RENAL Hx Chronic Kidney Disease: Yes Hx Kidney Stones: Yes - ENDOCRINE/METABOLIC Hx Endocrine Disorders: No - HEMATOLOGICAL/ONCOLOGICAL Hx Human Immunodeficiency Virus (HIV): No - INTEGUMENTARY Hx Dermatological Problems: No - MUSCULOSKELETAL/RHEUMATOLOGICAL Hx Arthritis: Yes - GASTROINTESTINAL Hx Gastrointestinal Disorders: Yes Hx Hemorrhoids: Yes - GENITOURINARY/GYNECOLOGICAL Hx Genitourinary Disorders: Yes Hx Prostate Cancer: Yes - PSYCHIATRIC Hx Substance Use: No - SURGICAL HISTORY Hx Surgeries: Yes Hx Cataract Extraction: Yes Hx Herniorrhaphy: Yes Other/Comment: 01/21/2017 - ANESTHESIA Hx Anesthesia: Yes Hx Anesthesia Reactions: No Hx Malignant Hyperthermia: No Meds Allergies/Adverse Reactions: Allergies Allergy/AdvReac Type Severity Reaction Status Date / Time No Known Allergies Allergy Verified 04/14/17 04:11 - Medications Medications: Current Medications Bisacodyl (Dulcolax) 5 mg PO ONCE ONE Stop: 04/15/17 13:01 Furosemide (Lasix) 20 mg PO BID [facility] Last Admin: 04/14/17 17:44 Dose: 20 mg Heparin Sodium (Porcine) (Heparin) 5,000 units SC Q8 [facility] Last Admin: 04/15/17 06:06 Dose: 5,000 units Piperacillin Sod/Tazobactam Sod (Zosyn 4.5 Gm Iv Premix) 4.5 gm in 100 mls @ 200 mls/hr IVPB Q8H [facility] Last Admin: 04/15/17 01:50 Dose: 200 mls/hr Ketorolac Tromethamine (Toradol) 15 mg IVP Q6 PRN PRN Reason: Pain, moderate (4-7) Ketorolac Tromethamine (Toradol) 30 mg IVP Q6 PRN PRN Reason: Pain, severe (8-10) Last Admin: 04/14/17 19:56 Dose: 30 mg Lactobacillus Acidophilus (Bacid Acidophilus) 1 cap PO BID [facility] Lisinopril (Zestril) 5 mg PO DAILY [facility] Ondansetron HCl (Zofran Inj) 4 mg IVP Q6 PRN PRN Reason: Nausea/Vomiting Pantoprazole Sodium (Protonix Inj) 40 mg IVP DAILY [facility] Pneumococcal Polyvalent Vaccine (Pneumovax 23 Vaccine) 0.5 ml IM .ONCE ONE Stop: 04/17/17 10:01 Polyethylene Glycol (Miralax) 17 gm PO DAILY [facility] Physical Exam - Constitutional Appears: Non-toxic, No Acute Distress - Head Exam Head Exam: ATRAUMATIC, NORMAL INSPECTION - Eye Exam Eye Exam: EOMI Pupil Exam: NORMAL ACCOMODATION - ENT Exam ENT Exam: Mucous Membranes Moist - Respiratory Exam Respiratory Exam: Clear to Auscultation Bilateral, NORMAL BREATHING PATTERN. absent: Respiratory Distress - Cardiovascular Exam Cardiovascular Exam: REGULAR RHYTHM, +S1, +S2 - GI/Abdominal Exam GI & Abdominal Exam: Normal Bowel Sounds, Soft - Rectal Exam Rectal Exam: NORMAL INSPECTION - Extremities Exam Extremities exam: Positive for: normal inspection - Back Exam Back exam: NORMAL INSPECTION - Neurological Exam Neurological exam: Alert, CN II-XII Intact, Normal Gait, Oriented x3 - Psychiatric Exam Psychiatric exam: Normal Affect, Normal Mood - Skin Skin Exam: Normal Color Results - Vital Signs Recent Vital Signs: Last Vital Signs Temp 98.1 F 04/15/17 08:05 Pulse 67 04/15/17 08:05 Resp 20 04/15/17 08:05 BP 93/58 L 04/15/17 08:05 Pulse Ox 97 04/15/17 08:05 - Labs Result Diagrams: 04/15/17 06:31 04/15/17 06:31 Labs: Laboratory Results - last 24 hr 04/14/17 04/14/17 04/14/17 04:51 14:15 14:15 WBC RBC Hgb Hct MCV MCH MCHC RDW Plt Count MPV Neut % (Auto) Lymph % (Auto) [place] % (Auto) Eos % (Auto) Baso % (Auto) Neut # (Auto) Lymph # (Auto) [place] # (Auto) Eos # (Auto) Baso # (Auto) PT INR APTT Sodium 139 Potassium 4.3 Chloride 101 Carbon Dioxide 26 Anion Gap 16 BUN 17 Creatinine 0.9 Est GFR ( Amer) > 60 Est GFR (Non-Af Amer) > 60 POC Glucose (mg/dL) Random Glucose 147 H Hemoglobin A1c 5.6 Calcium 9.2 Phosphorus Magnesium Total Bilirubin 0.6 AST 23 ALT 48 Alkaline Phosphatase 70 Total Creatine Kinase 51 L CK-MB (Mass) 0.67 Troponin I < 0.0120 < 0.0120 NT-Pro-B Natriuret Pep Total Protein 7.5 Albumin 3.8 Globulin 3.7 Albumin/Globulin Ratio 1.0 Triglycerides Cholesterol LDL Cholesterol Direct HDL Cholesterol Lipase 141 04/14/17 04/14/17 04/14/17 14:56 17:17 21:32 WBC RBC Hgb Hct MCV MCH MCHC RDW Plt Count MPV Neut % (Auto) Lymph % (Auto) [place] % (Auto) Eos % (Auto) Baso % (Auto) Neut # (Auto) Lymph # (Auto) [place] # (Auto) Eos # (Auto) Baso # (Auto) PT 10.8 INR 1.0 APTT 30 Sodium Potassium Chloride Carbon Dioxide Anion Gap BUN Creatinine Est GFR ( Amer) Est GFR (Non-Af Amer) POC Glucose (mg/dL) 113 H Random Glucose Hemoglobin A1c Calcium Phosphorus Magnesium Total Bilirubin AST ALT Alkaline Phosphatase Total Creatine Kinase CK-MB (Mass) Troponin I NT-Pro-B Natriuret Pep 343 Total Protein Albumin Globulin Albumin/Globulin Ratio Triglycerides Cholesterol LDL Cholesterol Direct HDL Cholesterol Lipase 04/14/17 04/15/17 04/15/17 21:50 06:31 06:31 WBC 6.3 RBC 3.83 L Hgb 11.1 L Hct 32.7 L MCV 85.5 MCH 29.0 MCHC 34.0 RDW 14.7 H Plt Count 246 MPV 7.9 Neut % (Auto) 68.7 Lymph % (Auto) 18.9 L [place] % (Auto) 10.3 H Eos % (Auto) 1.7 Baso % (Auto) 0.4 Neut # (Auto) 4.3 Lymph # (Auto) 1.2 [place] # (Auto) 0.7 Eos # (Auto) 0.1 Baso # (Auto) 0.0 PT INR APTT Sodium 136 Potassium 3.7 Chloride 104 Carbon Dioxide 25 Anion Gap 10 BUN 18 Creatinine 1.2 Est GFR ( Amer) > 60 Est GFR (Non-Af Amer) 59 POC Glucose (mg/dL) Random Glucose 96 Hemoglobin A1c Calcium 8.3 L Phosphorus 4.3 Magnesium 2.2 Total Bilirubin 1.6 H AST 19 ALT 39 Alkaline Phosphatase 53 Total Creatine Kinase 47 L CK-MB (Mass) 0.64 Troponin I < 0.0120 NT-Pro-B Natriuret Pep Total Protein 6.2 L Albumin 3.1 L Globulin 3.1 Albumin/Globulin Ratio 1.0 Triglycerides 59 Cholesterol 162 LDL Cholesterol Direct 83 HDL Cholesterol 47 Lipase Assessment & Plan - Assessment and Plan (Free Text) Assessment: Diastolic CHF ECHO 01/2017: LVEF 55% with diastolic dysfunction CXR: No consolidation. Interval left inferolateral pleural parenchymal opacity/ reaction -costophrenic angle. Trace interval fluid possible BNP: 343 Lasix 20mg PO BID Lisinopril 5mg PO daily Rec Statin use Nuclear Street test 04/15: normal, mild-moderate risk for cardiovascular event during non cardiac surgical procedure QTc Prolongation EKG: QTc 452 Continue to monitor 1st Degree AV Block EKG: [place] interval [address] Barrientos. <Dimitri Barrientos - Last Filed: 04/15/17 22:18> Meds - Medications Medications: Current Medications Furosemide (Lasix) 20 mg PO BID [facility] Last Admin: 04/15/17 18:10 Dose: 20 mg Heparin Sodium (Porcine) (Heparin) 5,000 units SC Q8 [facility] Last Admin: 04/15/17 22:10 Dose: 5,000 units Piperacillin Sod/Tazobactam Sod (Zosyn 4.5 Gm Iv Premix) 4.5 gm in 100 mls @ 200 mls/hr IVPB Q8H [facility] Last Admin: 04/15/17 18:14 Dose: 200 mls/hr Ketorolac Tromethamine (Toradol) 15 mg IVP Q6 PRN PRN Reason: Pain, moderate (4-7) Ketorolac Tromethamine (Toradol) 30 mg IVP Q6 PRN PRN Reason: Pain, severe (8-10) Last Admin: 04/14/17 19:56 Dose: 30 mg Lactobacillus Acidophilus (Bacid Acidophilus) 1 cap PO BID [facility] Last Admin: 04/15/17 18:14 Dose: 1 cap Lisinopril (Zestril) 5 mg PO DAILY [facility] Last Admin: 04/15/17 10:53 Dose: 5 mg Ondansetron HCl (Zofran Inj) 4 mg IVP Q6 PRN PRN Reason: Nausea/Vomiting Pantoprazole Sodium (Protonix Inj) 40 mg IVP DAILY [facility] Last Admin: 04/15/17 10:54 Dose: 40 mg Pneumococcal Polyvalent Vaccine (Pneumovax 23 Vaccine) 0.5 ml IM .ONCE ONE Stop: 04/17/17 10:01 Results - Vital Signs Recent Vital Signs: Last Vital Signs Temp 98.3 F 04/15/17 15:20 Pulse 71 04/15/17 15:20 Resp 20 04/15/17 15:20 BP 101/59 L 04/15/17 18:10 Pulse Ox 100 04/15/17 15:20 - Labs Result Diagrams: 04/15/17 06:31 04/15/17 06:31 Labs: Laboratory Results - last 24 hr 04/14/17 04/15/17 04/15/17 21:50 06:31 06:31 WBC 6.3 RBC 3.83 L Hgb 11.1 L Hct 32.7 L MCV 85.5 MCH 29.0 MCHC 34.0 RDW 14.7 H Plt Count 246 MPV 7.9 Neut % (Auto) 68.7 Lymph % (Auto) 18.9 L [place] % (Auto) 10.3 H Eos % (Auto) 1.7 Baso % (Auto) 0.4 Neut # (Auto) 4.3 Lymph # (Auto) 1.2 [place] # (Auto) 0.7 Eos # (Auto) 0.1 Baso # (Auto) 0.0 Sodium 136 Potassium 3.7 Chloride 104 Carbon Dioxide 25 Anion Gap 10 BUN 18 Creatinine 1.2 Est GFR ( Amer) > 60 Est GFR (Non-Af Amer) 59 Random Glucose 96 Calcium 8.3 L Phosphorus 4.3 Magnesium 2.2 Total Bilirubin 1.6 H AST 19 ALT 39 Alkaline Phosphatase 53 CK-MB (Mass) 0.64 Troponin I < 0.0120 Total Protein 6.2 L Albumin 3.1 L Globulin 3.1 Albumin/Globulin Ratio 1.0 Triglycerides 59 Cholesterol 162 LDL Cholesterol Direct 83 HDL Cholesterol 47 Assessment & Plan - Assessment and Plan (Free Text) Plan: Patient seen and evaluated personally by me. Plan of care discussed with the medical imaging technician and as documented
[2017-04-15] MEDS ORDERED: POLYETHYLENE GLYCOL 3350 17 GM/Dose PACKET PO SCH (10:00)
[2017-04-15] MEDS: Lactobacillus Acidophilus 500 MU Cap PO SCH ×3 (10:53→18:14)
--- NOTE | 2017-04-15 11:39 | CARD ---
APPROVED REPORT EKG Measurement Heart [id number] [place] [id number] <Conclusion> Normal sinus rhythm Normal ECG
--- NOTE | 2017-04-15 11:59 | CARD ---
APPROVED REPORT EKG Measurement Heart [id number] [place] [id number] <Conclusion> Sinus rhythm with 1st degree AV block Otherwise normal ECG
[2017-04-15] MEDS ORDERED: Bisacodyl 5mg EC Tab PO ONE (13:00)
--- NOTE | 2017-04-15 15:03 | CP.PCM.PN ---
Subjective - Date & Time of Evaluation Date of Evaluation: 04/15/17 Time of Evaluation: 11:30 - Subjective Subjective: General Surgery- Dr. Graham Patient seen and examined at bedside this AM. abd symptoms have resolved. tolerating CLD. no new complaints. Objective - Vital Signs/Intake and Output Vital Signs (last 24 hours): Temp Pulse Resp BP Pulse Ox 98.1 F 64 20 110/70 97 04/15/17 08:05 04/15/17 10:25 04/15/17 08:05 04/15/17 10:53 04/15/17 08:05 Intake and Output: 04/15/17 04/15/17 06:59 18:59 Intake Total 10 Balance 10 - Medications Medications: Current Medications Furosemide (Lasix) 20 mg PO BID [facility] Last Admin: 04/15/17 10:53 Dose: 20 mg Heparin Sodium (Porcine) (Heparin) 5,000 units SC Q8 [facility] Last Admin: 04/15/17 14:30 Dose: 5,000 units Piperacillin Sod/Tazobactam Sod (Zosyn 4.5 Gm Iv Premix) 4.5 gm in 100 mls @ 200 mls/hr IVPB Q8H [facility] Last Admin: 04/15/17 10:54 Dose: 200 mls/hr Ketorolac Tromethamine (Toradol) 15 mg IVP Q6 PRN PRN Reason: Pain, moderate (4-7) Ketorolac Tromethamine (Toradol) 30 mg IVP Q6 PRN PRN Reason: Pain, severe (8-10) Last Admin: 04/14/17 19:56 Dose: 30 mg Lactobacillus Acidophilus (Bacid Acidophilus) 1 cap PO BID [facility] Last Admin: 04/15/17 14:31 Dose: Not Given Lisinopril (Zestril) 5 mg PO DAILY [facility] Last Admin: 04/15/17 10:53 Dose: 5 mg Ondansetron HCl (Zofran Inj) 4 mg IVP Q6 PRN PRN Reason: Nausea/Vomiting Pantoprazole Sodium (Protonix Inj) 40 mg IVP DAILY [facility] Last Admin: 04/15/17 10:54 Dose: 40 mg Pneumococcal Polyvalent Vaccine (Pneumovax 23 Vaccine) 0.5 ml IM .ONCE ONE Stop: 04/17/17 10:01 - Labs Labs: 04/15/17 06:31 02/21/18 06:31 PT 10.8 SECONDS (9.7-12.2) 04/14/17 14:56 INR 1.0 04/14/17 14:56 APTT 30 SECONDS (21-34) 04/14/17 14:56 - Constitutional Appears: Non-toxic, No Acute Distress - Eye Exam Eye Exam: EOMI. absent: Scleral icterus - ENT Exam ENT Exam: Mucous Membranes Moist - Respiratory Exam Respiratory Exam: NORMAL BREATHING PATTERN. absent: Accessory Muscle Use, Chest Wall Tenderness - Cardiovascular Exam Cardiovascular Exam: +S1, +S2. absent: Bradycardia, Tachycardia - GI/Abdominal Exam GI & Abdominal Exam: Soft, Tenderness. absent: Distended, Firm, Guarding, Rigid Additional comments: Tender to palpation in RUQ - Neurological Exam Neurological Exam: Alert, Awake, Oriented x3 - Psychiatric Exam Psychiatric exam: Normal Affect - Skin Skin Exam: Dry, Warm Assessment and Plan - Assessment and Plan (Free Text) Assessment: 72M RUQ pain symptomatic cholelithiasis vs cholecystitis Plan: OR tomorrow NPO after MN IVF pain control and anti-emetic PRN d/w Dr. Gladys Gomez PGY1
--- NOTE | 2017-04-15 17:26 | CARD ---
APPROVED REPORT Protocol: PHARMACOLOGICAL STRESS Test Type: LEXISCAN Test Indications: CHEST PAIN Medications: LIST SCAN Medical History: CHEST PAIN Target HR: 147 bpm Resting ECG: NSR Resting Heart Rate: 105 bpm Resting Blood Pressure: 134/80mmHg submaximum (85%): 125 bpm TEST SUMMARY [id number]/80.0. INFUSIONDOSE 100:300.00.01.0111/.0. COURMOUCD30:[id number]/70.0. PROCEDURE Pharmacologic stress testing was performed using 0.4mg per 5ml of regadenoson given intravenously over 7-10 seconds. Reversal agent aminophyline 125 mg, given intravenously for Chest Pain. POST EXERCISE Reason for Termination: Protocol Completed Target HR: No Max HR: 111 bpm 76% of Maximum Predicted HR: 147 bpm Exercise duration: 00:30 min:sec, 0 Stage Exercise capacity: 1.0METs Max Blood Pressure: 134/80mmHg Blood Pressure response to exercise: normal resting BP - appropriate response Heart Rate response to exercise: appropriate Chest Pain: No, none Angina index: 0 Arrhythmia: No, none ST Change: No, none Deviation: 0 mm INTERPRETATION Stress EKG Conclusion: NEGATIVE LEXISCAN STRESS TEST NORMAL BP RESPONSE TO LEXISCAN NUCLEAR STUDIES TO BE READ SEPARATELY EXAM: Myocardial Perfusion STRESS/REST Imaging Protocol The imaging protocol used to acquire images was Stress Tc-99m/rest Tc-99m 1 day Rest Spect myocardial perfusion imaging was performed in supine position 45 minutes following the injection of 32.3 mCi of Tc-99 Myoview. Gated Stress Spect was performed 45 minutes after intravenous 13.1 mCi Tc-99 Myoview injection. The images were gated to evaluate regional wall motion and calculate ventricular ejection fraction.Images were reconstructed using backfilter projection method in short horizontal and verticle long axis. Spect slices were generated. RESTING DATA EDV70.10dkQD2.80L/min ESV25.00mlMyocardial Roat365.00g Av. Heart Rate63.00bpm EF64.00% STRESS DATA EDV82.47fkUI8.00L/min ESV30.00mlMyocardial Ncnj499.00g EF63.00% Regional WT score at stress:1.00 Regional WM score at stress:0.00 Summed WT score at stress:9.00 Av. Heart Rate76.00bpmSummed WM score at stress:7.00 LV Perf. Quant 17 Seg. SSS0.00 17 Seg. SRS1.00 17 Seg. SDS0.00 Stress Defect Extent (% LAD)0.00Rest Defect Extent (% LAD)0.00Rev. Defect Extent (% LAD)0.00 Stress Defect Extent (% LCX)12.50Rest Defect Extent (% LCX)15.00Rev. Defect Extent (% LCX)0.00 Stress Defect Extent (% RCA)0.00Rest Defect Extent (% RCA)0.00Rev. Defect Extent (% RCA)0.00 Stress Defect Extent (% MADDY)2.20Rest Defect Extent (% MADDY)3.00Rev. Defect Extent (% MADDY)0.00 Other Information Quality:Average IMPRESSION Normal Myocardial Perfusion exercise stress study Left Ventricle LV Function:Left ventricle systolic function is normal. The Ejection Fraction is >55%. Metabolism/Perfusion There are no perfusion/metabolism defects. Conclusion 1. Inferior artifact otherwose Normal Lexiscan nuclear stress test. Normal EF
[2017-04-16] MEDS: Piperacill/Tazo 4.5gm in Dex 4.5 GM/100 ML BAG IVPB SCH ×3 (02:02→17:57)
--- NOTE | 2017-04-16 06:28 | CP.PCM.PN ---
<Wanda Feldman - Last Filed: 04/16/17 06:24> Subjective - Date & Time of Evaluation Date of Evaluation: 04/16/17 Time of Evaluation: 07:00 - Subjective Subjective: Medicine Note for Hospitalist Service- Dr. Gabe Cervantes Patient was seen and examined at bedside. [facility], case to follow after 11am. Patient reports he tolerated CLD and ambulates well. Denied fever, chills, headache, chest pain, abdominal pain, n/v/ d/c, or urinary symptoms. Objective - Vital Signs/Intake and Output Vital Signs (last 24 hours): Temp Pulse Resp BP Pulse Ox 98.2 F 70 20 93/59 L 97 04/15/17 23:05 04/16/17 00:00 04/15/17 23:05 04/15/17 23:05 04/15/17 23:05 Intake and Output: 04/15/17 04/16/17 18:59 06:59 Intake Total 110 Balance 110 - Medications Medications: Current Medications Furosemide (Lasix) 20 mg PO BID [facility] Last Admin: 04/15/17 18:10 Dose: 20 mg Heparin Sodium (Porcine) (Heparin) 5,000 units SC Q8 [facility] Last Admin: 04/15/17 22:10 Dose: 5,000 units Piperacillin Sod/Tazobactam Sod (Zosyn 4.5 Gm Iv Premix) 4.5 gm in 100 mls @ 200 mls/hr IVPB Q8H [facility] Last Admin: 04/16/17 02:02 Dose: 200 mls/hr Lactobacillus Acidophilus (Bacid Acidophilus) 1 cap PO BID [facility] Last Admin: 04/15/17 18:14 Dose: 1 cap Lisinopril (Zestril) 5 mg PO DAILY [facility] Last Admin: 04/15/17 10:53 Dose: 5 mg Ondansetron HCl (Zofran Inj) 4 mg IVP Q6 PRN PRN Reason: Nausea/Vomiting Pantoprazole Sodium (Protonix Inj) 40 mg IVP DAILY [facility] Last Admin: 04/15/17 10:54 Dose: 40 mg Pneumococcal Polyvalent Vaccine (Pneumovax 23 Vaccine) 0.5 ml IM .ONCE ONE Stop: 04/17/17 10:01 - Labs Labs: 04/15/17 06:31 04/15/17 06:31 PT 10.8 SECONDS (9.7-12.2) 04/14/17 14:56 INR 1.0 04/14/17 14:56 APTT 30 SECONDS (21-34) 04/14/17 14:56 - Additional Findings Additional findings: - Constitutional Appears: No Acute Distress - Head Exam Head Exam: NORMAL INSPECTION, NORMOCEPHALIC - Eye Exam Eye Exam: EOMI, Normal appearance, PERRL Pupil Exam: NORMAL ACCOMODATION - ENT Exam ENT Exam: Mucous Membranes Moist - Respiratory Exam Respiratory Exam: Clear to Auscultation Bilateral, NORMAL BREATHING PATTERN. absent: Decreased Breath Sounds, Wheezes - Cardiovascular Exam Cardiovascular Exam: REGULAR RHYTHM, RRR. absent: JVD - GI/Abdominal Exam GI & Abdominal Exam: Normal Bowel Sounds, Soft. absent: Distended, Guarding, Rigid, Tenderness (Patient received morphine in ED prior to exam. ) - Extremities Exam Extremities exam: Positive for: normal inspection, pedal pulses present. Negative for: pedal edema, tenderness - Neurological Exam Neurological exam: Alert, CN II-XII Intact, Oriented x3 - Psychiatric Exam Psychiatric exam: Normal Affect, Normal Mood - Skin Skin Exam: Dry, Intact, Normal Color, Warm Assessment and Plan - Assessment and Plan (Free Text) Plan: Acute Cholecystitis General Surgery consulted- Dr. Graham- help appreciated Afebrile, no leukocytosis Negative Singleton sign on exam - however patient received total 8mg IV of morphine prior to examination Blood Culture negative to date OR Scheduled - 04/16/[address] Graham at 11am to follow case Imaging: CT Ab&P with IV only: 1. Constipation. No evidence of bowel obstruction. 2. 3 mm nonobstructing stone in the upper pole and 2 mm nonobstructing stone in the lower pole of the right kidney. 3. Cholelithiasis and distended gallbladder. If clinically indicated, correlation with right upper quadrant ultrasound may be performed to exclude acute cholecystitis. Gallbladder US: Immobile gallstones at the level the gallbladder neck. Gallbladder wall appears top normal in thickness. Minimal pericholecystic edema. Negative sonographic Singleton's sign as assessed by the therapist. Correlate clinically for possibility of cholecystitis. Echogenic liver may be seen in setting of hepatic parenchymal disease or fatty infiltration. Nonobstructing right renal calculus. Right renal cysts. Meds: Zosyn 3.375gm IVP Q6H Probiotic 1 tab PO BID - 2 hours prior to abx administration Zofran PRN Chest pain R/O ACS ANGELINA- negative, EKst degree AV Block ANGELINA x 3- negative, EKG x 3- 1st degree AV block Diastolic CHF Cardiology consulted - Dr. Barrientos - help appreciated - for cardiac clearance ECHO 01/2017: LVEF 55% with diastolic dysfunction CXR: No consolidation. Interval left inferolateral pleural parenchymal opacity/ reaction -costophrenic angle. Trace interval fluid possible BNP: Resumed home medication: Lasix 20mg PO BID Patient is for nuclear stress test today 04/15/17 - patient is cleared for surgery by cardiology QTc Prolongation EKG: QTc 452 Continue to monitor 1st Degree AV Block EKG: [place] interval 214 Continue to monitor Nephrolithiasis Asymptomatic CT Ab&Pwith IV only: 1. Constipation. No evidence of bowel obstruction. 2. 3 mm nonobstructing stone in the upper pole and 2 mm nonobstructing stone in the lower pole of the right kidney. 3. Cholelithiasis and distended gallbladder. If clinically indicated, correlation with right upper quadrant ultrasound may be performed to exclude acute cholecystitis. HTN Hx HLD Resumed home medication: Lisinopril 5mg PO daily A1C: 5.6 Prostate Cancer s/p chemoradiation Diagnosed 2015, remission 01/2017 Patient follows up with Dr. Bailon Hx TB (2004) Hx Cataract Surgery Patient to continue follow up with Ophthalmology Prophylactic Measures GI PPX: Protonix 40mg IVP daily DVT PPX: SCDs, Heparin [id number] will hold prior to surgery NPO DW Wanda Azul DO, PGY-1 <Thomas Cervantes - Last Filed: 04/16/17 19:14> Objective - Vital Signs/Intake and Output Vital Signs (last 24 hours): Temp Pulse Resp BP Pulse Ox 97.4 F L 54 L 12 118/70 100 04/16/17 17:15 04/16/17 17:15 04/16/17 17:15 04/16/17 17:56 04/16/17 17:15 Intake and Output: 04/16/17 04/17/17 18:59 06:59 Intake Total 150 Balance 150 - Medications Medications: Current Medications Furosemide (Lasix) 20 mg PO BID [facility] Last Admin: 04/16/17 17:56 Dose: 20 mg Heparin Sodium (Porcine) (Heparin) 5,000 units SC Q8 [facility] Last Admin: 04/15/17 22:10 Dose: 5,000 units Piperacillin Sod/Tazobactam Sod (Zosyn 4.5 Gm Iv Premix) 4.5 gm in 100 mls @ 200 mls/hr IVPB Q8H [facility] Last Admin: 04/16/17 17:57 Dose: 200 mls/hr Lactated Ringer's (Lactated Ringer's) 1,000 mls @ 90 mls/hr IV .Q11H7M [facility] Last Admin: 04/16/17 18:00 Dose: 90 mls/hr Lactobacillus Acidophilus (Bacid Acidophilus) 1 cap PO BID [facility] Last Admin: 04/16/17 17:56 Dose: 1 cap Lisinopril (Zestril) 5 mg PO DAILY [facility] Last Admin: 04/16/17 10:33 Dose: 5 mg Morphine Sulfate (Morphine) 4 mg IVP Q4 PRN PRN Reason: Pain, moderate (4-7) Ondansetron HCl (Zofran Inj) 4 mg IVP Q6 PRN PRN Reason: Nausea/Vomiting Pantoprazole Sodium (Protonix Inj) 40 mg IVP DAILY [facility] Last Admin: 04/16/17 10:32 Dose: 40 mg Pneumococcal Polyvalent Vaccine (Pneumovax 23 Vaccine) 0.5 ml IM .ONCE ONE Stop: 04/17/17 10:01 - Labs Labs: 04/16/17 08:03 04/16/17 08:03 PT 10.8 SECONDS (9.7-12.2) 04/14/17 14:56 INR 1.0 04/14/17 14:56 APTT 30 SECONDS (21-34) 04/14/17 14:56 Attending/Attestation - Attestation I have personally seen and examined this patient.: Yes I have fully participated in the care of the patient.: Yes I have reviewed all pertinent clinical information, including history, physical exam and plan: Yes Notes (Text): 04/16/17 19:12 Patient was seen and examined at 8 AM 04/16/17 662 B Also on ROS: Watery yellow bowel movement yesterday but not today yet Also on Exam: GI: RUQ pain with deep palpation, NO guarding/rebound tenderness For Lap [place] with Surgery Team Dr. Graham later today at 11:00 AM Thomas Cervantes D.O.
[2017-04-16 08:18] LABS: BASO % 0.4 % (0.0-2.0); EOS # 0.2 K/uL (0.0-0.7); EOS % 3.2 % (0.0-4.0); LYMPH # 1.3 K/uL (1.0-4.3); LYMPH % 26.3 % (20.0-40.0); MEAN CELL VOLUME 84.4 fL (80.0-94.0); MEAN CORPUSCULAR HEMOGLOBIN 28.8 pg (27.0-31.0); MEAN CORPUSCULAR HGB CONC 34.1 g/dL (33.0-37.0); MEAN PLATELET VOLUME 7.7 fL (7.2-11.7); MONO # 0.5 K/uL (0.0-0.8); MONO % 9.6 % (0.0-10.0); NEUT # 3.1 K/uL (1.8-7.0); NEUT % 60.5 % (50.0-75.0); NRBC % 0.1 % (0.0-2.0); RBC 3.82 Mil/uL (4.40-5.90); RED CELL DISTRIBUTION WIDTH 14.5 % (11.5-14.5); WHITE BLOOD COUNT 5.1 K/uL (4.8-10.8)
[2017-04-16 08:33] LABS: ALBUMIN 3.2 g/dL (3.5-5.0); ALT/SGPT 34 U/L (21-72); AST/SGOT 18 U/L (17-59); BLOOD UREA NITROGEN 16 mg/dL (9-20); CALCIUM 8.5 mg/dl (8.6-10.4); GFR AFRICAN-AMERICAN > 60; GFR NON-AFRICAN AMERICAN > 60; MAGNESIUM 2.1 mg/dL (1.6-2.3)
[2017-04-16] MEDS ORDERED: Bupivacaine-Epi 0.5%-1:200,000 PF Inj IJ ONE (10:05)
[2017-04-16] MEDS: Lactobacillus Acidophilus 500 MU Cap PO SCH ×2 (10:33→17:56)
[2017-04-16] MEDS ORDERED: Influenza Vaccine 60 mcg/0.5 mL SYR (4YR UP) IM ONE (12:00)
[2017-04-16] MEDS ORDERED: Lactated Ringer's 1,000 ML IV ONE (12:16)
[2017-04-16] MEDS ORDERED: Midazolam 2 MG/2 ML VIAL ONE (14:38)
[2017-04-16] MEDS ORDERED: Propofol 10 mg/ml Inj (20 ML) ONE (14:39)
[2017-04-16] MEDS ORDERED: ePHEDrine 50 mg/ml Inj ONE (15:40)
[2017-04-16] MEDS ORDERED: Neostigmine Methylsulfate 3mg/3ml Syringe IV ONE (15:41)
--- NOTE | 2017-04-16 16:09 | PCM.SURG1 ---
Surgeon's Initial Post Op Note - Surgeon's Notes Surgeon: Gladys Poker Manager: PGY4 Type of Anesthesia: General Endo, Local Pre-Operative Diagnosis: Acute cholecystitis Operative Findings: see op note Post-Operative Diagnosis: Acute Cholecystitis Operation Performed: Laparoscopic cholecystectomy Specimen/Specimens Removed: Gallbladder Estimated Blood Loss: EBL {In ML}: 30 Blood Products Given: N/A Drains Used: No Drains Post-Op Condition: Good Date of Surgery/Procedure: 04/16/17 Time of Surgery/Procedure: 15:00
[2017-04-16] MEDS ORDERED: HYDROmorphone 0.5 mg/0.5 ml ISec IVP PRN (16:23)
[2017-04-16] MEDS ORDERED: HYDROmorphone 0.5 mg/0.5 ml ISec ONE (16:25)
[2017-04-16] MEDS: Lactated Ringer's 1,000 ML IV SCH ×2 (18:00→22:37)
[2017-04-17] MEDS: Morphine 4 MG/ML VIAL IVP PRN ×2 (00:09→05:49)
[2017-04-17] MEDS: Lactated Ringer's 1,000 ML IV SCH ×2 (04:17→05:49)
--- NOTE | 2017-04-17 07:15 | OP ---
PROCEDURE DATE: 04/16/2017 PREOPERATIVE DIAGNOSIS: Cholecystitis with cholelithiasis. POSTOPERATIVE DIAGNOSIS: Cholecystitis with cholelithiasis. PROCEDURE: Laparoscopic cholecystectomy. SURGEON: Olman Graham MD CUTTER OPERATOR HELPER: . FINDINGS: Gallbladder was markedly distended, thick wall, hyperemic, acutely inflamed, and containing stone in the ampulla and thick adhesions were also noted involving omentum in the entire bottom three quarters of the gallbladder. DESCRIPTION OF PROCEDURE: Under general anesthesia, the patient was prepared and draped in the usual sterile fashion. CO2 was insufflated through a Veress needle, inserted in the umbilicus. A 10-mm trocar was inserted through which the laparoscope was inserted. Under direct vision, a 5-mm epigastric port and a 5 mm right upper quadrant ports were inserted. The patient was placed in a reverse Trendelenburg position, turned over towards the left side. The adhesions were then taken down, the ampulla was grasped. Cystic duct and cystic arteries were then isolated. They were transected between Hemoclips. The gallbladder was then removed from the liver bed with electrocautery. The bleeding was controlled with electrocautery. Gallbladder was then extracted through the umbilical port. It was initially extracted to dilate the opening to allow for the passage of the large gallbladder gallbladder fossa was then controlled with electrocautery, area was irrigated with copious amounts of saline solution, irrigating fluid suctioned out. CO2 was allowed to escape from the peritoneal cavity. Trocars were removed. The wound was closed in a routine fashion. Estimated blood loss was about 20 mL. No complications. Olman Graham MD
[2017-04-17 07:29] LABS: BASO % 0.2 % (0.0-2.0); EOS # 0.1 K/uL (0.0-0.7); EOS % 1.2 % (0.0-4.0); HEMOGLOBIN 11.6 g/dL (12.0-18.0); LYMPH # 1.2 K/uL (1.0-4.3); LYMPH % 16.3 % (20.0-40.0); MEAN CELL VOLUME 84.2 fL (80.0-94.0); MEAN CORPUSCULAR HEMOGLOBIN 28.8 pg (27.0-31.0); MEAN CORPUSCULAR HGB CONC 34.2 g/dL (33.0-37.0); MEAN PLATELET VOLUME 7.7 fL (7.2-11.7); MONO # 0.7 K/uL (0.0-0.8); MONO % 9.9 % (0.0-10.0); NEUT # 5.2 K/uL (1.8-7.0); NEUT % 72.4 % (50.0-75.0); RBC 4.03 Mil/uL (4.40-5.90); RED CELL DISTRIBUTION WIDTH 14.7 % (11.5-14.5); WHITE BLOOD COUNT 7.2 K/uL (4.8-10.8)
[2017-04-17 07:54] LABS: ALB/GLOB RATIO 1.1 (1.0-2.1); ALBUMIN 3.5 g/dL (3.5-5.0); ALT/SGPT 47 U/L (21-72); AST/SGOT 54 U/L (17-59); BLOOD UREA NITROGEN 12 mg/dL (9-20); CALCIUM 8.9 mg/dl (8.6-10.4); GFR AFRICAN-AMERICAN > 60; GFR NON-AFRICAN AMERICAN > 60; MAGNESIUM 1.9 mg/dL (1.6-2.3)
[2017-04-17 08:34] VITALS: PULSE 79; RESP 18; TEMP 98.7; O2SAT 99
[2017-04-17] MEDS ORDERED: Influenza Vaccine 60 mcg/0.5 mL SYR (4YR UP) IM ONE (10:00)
[2017-04-17] MEDS ORDERED: Pneumococcal 23-Valent Vaccine IM ONE (10:00)
--- NOTE | 2017-04-17 10:17 | CP.PCM.DIS ---
<Wanda Feldman - Last Filed: 04/17/17 10:58> Provider - Provider Date of Admission: 04/14/17 12:37 Attending physician: Thomas Cervantes MD Time Spent in preparation of Discharge (in minutes): 55 Hospital Course - Lab Results Lab Results: Micro Results 04/14/17 15:25 Blood Blood Culture - Preliminary NO GROWTH AFTER 48 HOURS 04/14/17 14:55 Blood Blood Culture - Preliminary NO GROWTH AFTER 48 HOURS Most Recent Lab Values WBC 7.2 K/uL (4.8-10.8) 04/17/17 06:55 RBC 4.03 Mil/uL (4.40-5.90) L 04/17/17 06:55 Hgb 11.6 g/dL (12.0-18.0) L 04/17/17 06:55 Hct 33.9 % (35.0-51.0) L 04/17/17 06:55 MCV 84.2 fL (80.0-94.0) 04/17/17 06:55 MCH 28.8 pg (27.0-31.0) 04/17/17 06:55 MCHC 34.2 g/dL (33.0-37.0) 04/17/17 06:55 RDW 14.7 % (11.5-14.5) H 04/17/17 06:55 Plt Count 261 K/uL (130-400) 04/17/17 06:55 MPV 7.7 fL (7.2-11.7) 04/17/17 06:55 Neut % (Auto) 72.4 % (50.0-75.0) 04/17/17 06:55 Lymph % (Auto) 16.3 % (20.0-40.0) L 04/17/17 06:55 Brewster % (Auto) 9.9 % (0.0-10.0) 04/17/17 06:55 Eos % (Auto) 1.2 % (0.0-4.0) 04/17/17 06:55 Baso % (Auto) 0.2 % (0.0-2.0) 04/17/17 06:55 Neut # (Auto) 5.2 K/uL (1.8-7.0) 04/17/17 06:55 Lymph # (Auto) 1.2 K/uL (1.0-4.3) 04/17/17 06:55 Brewster # (Auto) 0.7 K/uL (0.0-0.8) 04/17/17 06:55 Eos # (Auto) 0.1 K/uL (0.0-0.7) 04/17/17 06:55 Baso # (Auto) 0.0 K/uL (0.0-0.2) 04/17/17 06:55 PT 10.8 SECONDS (9.7-12.2) 04/14/17 14:56 INR 1.0 04/14/17 14:56 APTT 30 SECONDS (21-34) 04/14/17 14:56 Sodium 133 mmol/L (132-148) 04/17/17 06:55 Potassium 3.7 mmol/L (3.6-5.2) 04/17/17 06:55 Chloride 98 mmol/L (98-107) 04/17/17 06:55 Carbon Dioxide 27 mmol/L (22-30) 04/17/17 06:55 Anion Gap 12 (10-20) 04/17/17 06:55 BUN 12 mg/dL (9-20) 04/17/17 06:55 Creatinine 1.0 mg/dL (0.8-1.5) 04/17/17 06:55 Est GFR ( Amer) > 60 04/17/17 06:55 Est GFR (Non-Af Amer) > 60 04/17/17 06:55 POC Glucose (mg/dL) 113 mg/dL (65-110) H 04/14/17 21:32 Random Glucose 100 mg/dL (75-110) 04/17/17 06:55 Hemoglobin A1c 5.6 % (4.2-6.5) 04/14/17 14:15 Calcium 8.9 mg/dl (8.6-10.4) 04/17/17 06:55 Phosphorus 3.1 mg/dL (2.5-4.5) 04/17/17 06:55 Magnesium 1.9 mg/dL (1.6-2.3) 04/17/17 06:55 Total Bilirubin 1.2 mg/dL (0.2-1.3) 04/17/17 06:55 AST 54 U/L (17-59) 04/17/17 06:55 ALT 47 U/L (21-72) 04/17/17 06:55 Alkaline Phosphatase 49 U/L (38-126) 04/17/17 06:55 Total Creatine Kinase 47 U/L (55-170) L 04/14/17 21:50 CK-MB (Mass) 0.64 ng/mL (0.0-3.38) 04/14/17 21:50 Troponin I < 0.0120 ng/mL (0.00-0.120) 04/14/17 21:50 NT-Pro-B Natriuret Pep 343 pg/mL (0-900) 04/14/17 17:17 Total Protein 6.8 g/dL (6.3-8.3) 04/17/17 06:55 Albumin 3.5 g/dL (3.5-5.0) 04/17/17 06:55 Globulin 3.3 gm/dL (2.2-3.9) 04/17/17 06:55 Albumin/Globulin Ratio 1.1 (1.0-2.1) 04/17/17 06:55 Triglycerides 59 mg/dL (0-149) 04/15/17 06:31 Cholesterol 162 mg/dL (0-199) 04/15/17 06:31 LDL Cholesterol Direct 83 mg/dL (0-129) 04/15/17 06:31 HDL Cholesterol 47 mg/dL (30-70) 04/15/17 06:31 Lipase 141 U/L (23-300) 04/14/17 04:51 Free T4 0.96 ng/dL (0.78-2.19) 04/16/17 08:03 TSH 3rd Generation 1.87 mIU/L (0.46-4.68) 04/16/17 08:03 - Hospital Course Hospital Course: Upon Admission: CC: Chest pain and abdominal pain HPI: 72 Male with PMHx as listed below presents to the ED with chest pain and abdominal pain x 1 day. Patient reports last night he ate a greasy meal , deep fried dumplings around 8pm. Around 10pm he started to feel chest pressure localized to the epigastric area, did not radiate and lasted several hours. He admitted to abdominal pain and distention. He did not take anything for pain. He was transported to ED via ambulance. Patient reported the chest pressure resolved after receiving medications in the ED. He admits to feeling bloated and distended. He normally has a daily bowel movement, he did not have a bowel movement today. Currently patient reports he no longer has chest pain, admits to abdominal discomfort and distention. He does not have any appetite currently. Denied fever, chills, headache, chest pain, SOB, n/v/d/c, or urinary symptoms. PMHx: Diastolic CHF (LVEF 55%), Prostate Cancer s/p chemoradiation (diagnosed 2015, remission 01/2017), HTN, TB (2004), QTc Prolongation, Nephrolithiasis, 1st Degree AV Block, HLD, Chronic Anemia PSHx: Laminectomy with Fusion (01/21/17) - spinal abscess s/p I&D, Cataract Bilaterally (2015), Left inguinal and Umbilical Hernia, Colonoscopy 2016 Meds: Lisinopril 5mg PO daily, Lasix 20mg PO BID All: NKDA SHx: Denied any tobacco, alcohol, or illicit drug use FHx: Unremarkable Ophthalmology: Dr. Bhavik Wetzel No advance directive POA: Darlin Cervantes [phone] Throughout Hospital Course: Acute Cholecystitis General Surgery consulted- Dr. Graham- help appreciated Afebrile, no leukocytosis Negative Singleton sign on exam - however patient received total 8mg IV of morphine prior to examination Blood Culture negative to date OR Scheduled - POD #1 Imaging: CT Ab&P with IV only: 1. Constipation. No evidence of bowel obstruction. 2. 3 mm nonobstructing stone in the upper pole and 2 mm nonobstructing stone in the lower pole of the right kidney. 3. Cholelithiasis and distended gallbladder. If clinically indicated, correlation with right upper quadrant ultrasound may be performed to exclude acute cholecystitis. Gallbladder US: Immobile gallstones at the level the gallbladder neck. Gallbladder wall appears top normal in thickness. Minimal pericholecystic edema. Negative sonographic Singleton's sign as assessed by the steel rule die maker. Correlate clinically for possibility of cholecystitis. Echogenic liver may be seen in setting of hepatic parenchymal disease or fatty infiltration. Nonobstructing right renal calculus. Right renal cysts. Meds: Zosyn 3.375gm IVP Q6H Probiotic 1 tab PO BID - 2 hours prior to abx administration Zofran PRN Chest pain R/O ACS ANGELINA- negative, EKst degree AV Block ANGELINA x 3- negative, EKG x 3- 1st degree AV block Diastolic CHF Cardiology consulted - Dr. Barrientos - help appreciated - for cardiac clearance ECHO 01/2017: LVEF 55% with diastolic dysfunction CXR: No consolidation. Interval left inferolateral pleural parenchymal opacity/ reaction -costophrenic angle. Trace interval fluid possible BNP: Resumed home medication: Lasix 20mg PO BID Patient is for nuclear stress test today 04/15/17 - patient is cleared for surgery by cardiology QTc Prolongation EKG: QTc 452 Continue to monitor 1st Degree AV Block EKG: [place] interval 214 Continue to monitor Nephrolithiasis Asymptomatic CT Ab&Pwith IV only: 1. Constipation. No evidence of bowel obstruction. 2. 3 mm nonobstructing stone in the upper pole and 2 mm nonobstructing stone in the lower pole of the right kidney. 3. Cholelithiasis and distended gallbladder. If clinically indicated, correlation with right upper quadrant ultrasound may be performed to exclude acute cholecystitis. HTN Hx HLD Resumed home medication: Lisinopril 5mg PO daily A1C: 5.6 Prostate Cancer s/p chemoradiation Diagnosed 2015, remission 01/2017 Patient follows up with Dr. Bailon Hx TB (2004) Hx Cataract Surgery Patient to continue follow up with Ophthalmology Discharge Exam - Head Exam Head Exam: ATRAUMATIC, NORMAL INSPECTION, NORMOCEPHALIC - Eye Exam Eye Exam: EOMI, Normal appearance, PERRL - ENT Exam ENT Exam: Mucous Membranes Moist, Normal Exam - Respiratory Exam Respiratory Exam: Clear to PA & Lateral. absent: Decreased Breath Sounds, Wheezes - Cardiovascular Exam Cardiovascular Exam: REGULAR RHYTHM - GI/Abdominal Exam GI & Abdominal Exam: Soft, Tenderness (RUQ 2/2 surgical site ). absent: Distended - Rectal Exam Rectal Exam: Deferred - Extremities Exam Extremities exam: normal inspection, pedal pulses present - Neurological Exam Neurological exam: Alert, CN II-XII Intact, Oriented x3 - Psychiatric Exam Psychiatric exam: Normal Affect, Normal Mood - Skin Skin Exam: Dry, Intact, Normal Color, Warm Discharge Plan - Discharge Medications Prescriptions: Furosemide [Lasix] 20 mg PO BID #60 tab Lisinopril [Zestril] 5 mg PO DAILY #30 tab oxyCODONE/Acetaminophen [Percocet 5/325 mg Tab] 1 ea PO Q6H PRN #15 tab PRN Reason: Pain, Severe (8-10) - Follow Up Plan Condition: FAIR Disposition: HOME/ ROUTINE Instructions: Gallstones, Heart Healthy Diet, Clear Liquid Diet, Heart Failure , Adult (DC), Cholecystectomy, Laparoscopic Surgery, Chest Pain (DC), Furosemide , Lisinopril, Oxycodone and Acetaminophen, Managing Pain After Surgery Additional Instructions: Please continue to take Lisinopril 5mg by mouth daily, lasix 20mg by mouth twice a day. Also you can take tylenol or motrin as needed for mild pain. For severe pain you may take Percocet 1 tab every 6 hours only for SEVERE pain. Please follow up with Dr. Jeronimo the surgeon who performed the laproscopic surgery. Call his office to make an appointment for , April 23, 2017. Please return to the ED, if you develop fever, chills, abdominal pain. Referrals: [facility] [Outside] Olman Graham MD [Staff Provider] - <Thomas Cervantes - Last Filed: 04/17/17 19:28> Provider - Provider Date of Admission: 04/14/17 12:37 Attending physician: Thomas Cervantes MD Hospital Course - Lab Results Lab Results: Micro Results 04/14/17 15:25 Blood Blood Culture - Preliminary NO GROWTH AFTER 3 DAYS 04/14/17 14:55 Blood Blood Culture - Preliminary NO GROWTH AFTER 3 DAYS Most Recent Lab Values WBC 7.2 K/uL (4.8-10.8) 04/17/17 06:55 RBC 4.03 Mil/uL (4.40-5.90) L 04/17/17 06:55 Hgb 11.6 g/dL (12.0-18.0) L 04/17/17 06:55 Hct 33.9 % (35.0-51.0) L 04/17/17 06:55 MCV 84.2 fL (80.0-94.0) 04/17/17 06:55 MCH 28.8 pg (27.0-31.0) 04/17/17 06:55 MCHC 34.2 g/dL (33.0-37.0) 04/17/17 06:55 RDW 14.7 % (11.5-14.5) H 04/17/17 06:55 Plt Count 261 K/uL (130-400) 04/17/17 06:55 MPV 7.7 fL (7.2-11.7) 04/17/17 06:55 Neut % (Auto) 72.4 % (50.0-75.0) 04/17/17 06:55 Lymph % (Auto) 16.3 % (20.0-40.0) L 04/17/17 06:55 Brewster % (Auto) 9.9 % (0.0-10.0) 04/17/17 06:55 Eos % (Auto) 1.2 % (0.0-4.0) 04/17/17 06:55 Baso % (Auto) 0.2 % (0.0-2.0) 04/17/17 06:55 Neut # (Auto) 5.2 K/uL (1.8-7.0) 04/17/17 06:55 Lymph # (Auto) 1.2 K/uL (1.0-4.3) 04/17/17 06:55 Brewster # (Auto) 0.7 K/uL (0.0-0.8) 04/17/17 06:55 Eos # (Auto) 0.1 K/uL (0.0-0.7) 04/17/17 06:55 Baso # (Auto) 0.0 K/uL (0.0-0.2) 04/17/17 06:55 PT 10.8 SECONDS (9.7-12.2) 04/14/17 14:56 INR 1.0 04/14/17 14:56 APTT 30 SECONDS (21-34) 04/14/17 14:56 Sodium 133 mmol/L (132-148) 04/17/17 06:55 Potassium 3.7 mmol/L (3.6-5.2) 04/17/17 06:55 Chloride 98 mmol/L (98-107) 04/17/17 06:55 Carbon Dioxide 27 mmol/L (22-30) 04/17/17 06:55 Anion Gap 12 (10-20) 04/17/17 06:55 BUN 12 mg/dL (9-20) 04/17/17 06:55 Creatinine 1.0 mg/dL (0.8-1.5) 04/17/17 06:55 Est GFR ( Amer) > 60 04/17/17 06:55 Est GFR (Non-Af Amer) > 60 04/17/17 06:55 POC Glucose (mg/dL) 113 mg/dL (65-110) H 04/14/17 21:32 Random Glucose 100 mg/dL (75-110) 04/17/17 06:55 Hemoglobin A1c 5.6 % (4.2-6.5) 04/14/17 14:15 Calcium 8.9 mg/dl (8.6-10.4) 04/17/17 06:55 Phosphorus 3.1 mg/dL (2.5-4.5) 04/17/17 06:55 Magnesium 1.9 mg/dL (1.6-2.3) 04/17/17 06:55 Total Bilirubin 1.2 mg/dL (0.2-1.3) 04/17/17 06:55 AST 54 U/L (17-59) 04/17/17 06:55 ALT 47 U/L (21-72) 04/17/17 06:55 Alkaline Phosphatase 49 U/L (38-126) 04/17/17 06:55 Total Creatine Kinase 47 U/L (55-170) L 04/14/17 21:50 CK-MB (Mass) 0.64 ng/mL (0.0-3.38) 04/14/17 21:50 Troponin I < 0.0120 ng/mL (0.00-0.120) 04/14/17 21:50 NT-Pro-B Natriuret Pep 343 pg/mL (0-900) 04/14/17 17:17 Total Protein 6.8 g/dL (6.3-8.3) 04/17/17 06:55 Albumin 3.5 g/dL (3.5-5.0) 04/17/17 06:55 Globulin 3.3 gm/dL (2.2-3.9) 04/17/17 06:55 Albumin/Globulin Ratio 1.1 (1.0-2.1) 04/17/17 06:55 Triglycerides 59 mg/dL (0-149) 04/15/17 06:31 Cholesterol 162 mg/dL (0-199) 04/15/17 06:31 LDL Cholesterol Direct 83 mg/dL (0-129) 04/15/17 06:31 HDL Cholesterol 47 mg/dL (30-70) 04/15/17 06:31 Lipase 141 U/L (23-300) 04/14/17 04:51 Free T4 0.96 ng/dL (0.78-2.19) 04/16/17 08:03 TSH 3rd Generation 1.87 mIU/L (0.46-4.68) 04/16/17 08:03 Attending/Attestation - Attestation I have personally seen and examined this patient.: Yes I have fully participated in the care of the patient.: Yes I have reviewed all pertinent clinical information, including history, physical exam and plan: Yes Notes (Text): 04/17/17 19:27 Patient was seen and examined at 9:30 AM Exam, assessment and plan were gone over with the resident. I spoke with Surgery Dr. Graham and he wanted patient to follow up with him in 7 days. NO antibiotics needed. Thomas Cervantes D.O.
[2017-04-17] MEDS: Lactobacillus Acidophilus 500 MU Cap PO SCH (10:24)
[2017-04-17] MEDS: Piperacill/Tazo 4.5gm in Dex 4.5 GM/100 ML BAG IVPB SCH (10:24)
[2017-04-17 10:27] VITALS: BP 123/72
--- NOTE | 2017-04-17 16:02 | CP.PCM.PN ---
Subjective - Date & Time of Evaluation Date of Evaluation: 04/17/17 Time of Evaluation: 06:50 - Subjective Subjective: General Surgery- Dr. Graham Patient seen and examined at bedside this AM. No acute events overnight. tolerating diet. Pain well controlled on current pain regiment. Denies F/C CP/ SOb N/V/D Objective - Vital Signs/Intake and Output Vital Signs (last 24 hours): Temp Pulse Resp BP Pulse Ox 98.7 F 79 18 123/72 99 04/17/17 07:40 04/17/17 07:40 04/17/17 07:40 04/17/17 10:26 04/17/17 07:40 Intake and Output: 04/17/17 04/17/17 06:59 18:59 Intake Total 840 Output Total 600 Balance 240 - Labs Labs: 04/17/17 06:55 04/17/17 06:55 PT 10.8 SECONDS (9.7-12.2) 04/14/17 14:56 INR 1.0 04/14/17 14:56 APTT 30 SECONDS (21-34) 04/14/17 14:56 - Constitutional Appears: Non-toxic, No Acute Distress - Head Exam Head Exam: ATRAUMATIC - Eye Exam Eye Exam: EOMI. absent: Scleral icterus - ENT Exam ENT Exam: Mucous Membranes Moist - Respiratory Exam Respiratory Exam: NORMAL BREATHING PATTERN. absent: Accessory Muscle Use, Respiratory Distress - Cardiovascular Exam Cardiovascular Exam: +S1, +S2. absent: Bradycardia, Tachycardia - GI/Abdominal Exam GI & Abdominal Exam: Soft, Tenderness. absent: Distended, Firm, Guarding, Rigid Additional comments: appropriately tender around incisions incision C/D/I - Neurological Exam Neurological Exam: Alert, Awake, Oriented x3 - Skin Skin Exam: Intact, Warm Assessment and Plan - Assessment and Plan (Free Text) Assessment: 72M s/p laparoscopic cholecystecomy POD1 Plan: - regular diet - pain control PRN - cleared for discharge from a surgical standpoitn - follow up w/ Dr. Graham in 1 week - discussed w/ surgical attending Marciano Gomez PGY1
== END 2017-04-17 14:08 | DRG 418 ==
LOC: C.ER 03:59 → C.9E 12:37 → C.6T 13:31
PROVIDERS: ADMIT Family Medicine; ATTEND Family Medicine
PROC: 0FT44ZZ Resection of Gallbladder, Percutaneous Endoscopic Approach (ICD-10-PCS; principal; 2017-04-16 11:45)
DX: K80.10 Calculus of gallbladder with chronic cholecystitis without obstruction (principal); I50.32 Chronic diastolic (congestive) heart failure; I13.0 Hypertensive heart and chronic kidney disease with heart failure and stage 1 through stage 4 chronic kidney disease, or unspecified chronic kidney disease; I45.81 Long QT syndrome; K66.0 Peritoneal adhesions (postprocedural) (postinfection); Z85.46 Personal history of malignant neoplasm of prostate; Z92.21 Personal history of antineoplastic chemotherapy; Z92.3 Personal history of irradiation; I44.0 Atrioventricular block, first degree; E78.5 Hyperlipidemia, unspecified